=== PATIENT | female | born 1960 | race Caucasian/White ===

== ENCOUNTER 2019-10-31 07:39 | Observation (INO) ==
--- NOTE | 2019-09-27 16:26 | PAT Medication Instructions ---
Medication Instructions Date of Service September 27, 2019 Home Medications apixaban [Eliquis] 5 mg PO BID carisoprodol [Soma] 350 mg PO QID PRN cholecalciferol (vitamin D3) [Vitamin D3] 125 mcg PO DAILY gabapentin 800 mg PO TID ibrutinib [Imbruvica] 420 mg PO QPM magnesium 250 mg PO DAILY pantoprazole 40 mg PO QAM potassium chloride 10 meq PO DAILY propranolol 80 mg PO QAM solifenacin [Vesicare] 5 mg PO QAM ASK your prescriber and surgeon apixaban [Eliquis] 5 mg PO BID (in order for spinal anesthesia, Apixaban/Eliquis needs to be stopped 72 hours/3 days before surgery. Please check if okay with doctor that prescribes this to you) ibrutinib [Imbruvica] 420 mg PO QPM DO NOT take the morning of surgery carisoprodol [Soma] 350 mg PO QID PRN cholecalciferol (vitamin D3) [Vitamin D3] 125 mcg PO DAILY magnesium 250 mg PO DAILY potassium chloride 10 meq PO DAILY solifenacin [Vesicare] 5 mg PO QAM Take morning of surgery With a small sip of water, OTHERWISE NOTHING TO EAT OR DRINK AFTER MIDNIGHT: gabapentin 800 mg PO TID pantoprazole 40 mg PO QAM propranolol 80 mg PO QAM Take evening before surgery carisoprodol [Soma] 350 mg PO QID PRN (if needed) gabapentin 800 mg PO TID Other Notes If you have any questions please call us at [phone] or [phone] or [phone] or [phone]
--- NOTE | 2019-09-28 08:30 | Anesthesiology Consultation ---
Date of Service September 28, 2019 Assessment & Plan (1) Encounter for pre-operative examination: - Awaiting surgeon-ordered PCP (Dr. Quintana; 10/02), cardiology (Dr. Bolaños) and pulmonary (Dr. Vail) clearances. *Per PAT assessment on 09/27: Travel screen negative. No known COVID-19 positive contacts. No current COVID-19 related symptoms. Per patient, surgeon arranging preop COVID testing. Awaiting results. Chart Review Chart Review: Patient seen in Pre Admission Testing Teaching & Discussion Pre-Anesthesia Teaching/Discussion Notes: Instructed NPO after midnight before surgery,except medications with 15 cc of water. Medication instructions provided according to the PAT guidelines. History Surgery Operation Date: 10/31/19 12:20 Proposed Procedures p Right Total Knee Arthroplasty - Jose E Meza DO Height/Weight Height: 5 ft 5 in Weight: 123.5 kg Allergies Allergy/AdvReac Type Severity Reaction Status Date / Time morphine Allergy Unknown hypotension, Verified 09/28/19 08:38 headache BEE STINGS Allergy Unknown swelling, Uncoded 09/28/19 08:38 dyspnea Medications Home Medications Medication Instructions Recorded Confirmed Last Taken apixaban [Eliquis] 5 mg PO BID 09/27/19 09/27/19 Unknown carisoprodol [Soma] 350 mg PO QID PRN 09/27/19 09/27/19 Unknown cholecalciferol (vitamin D3) 125 mcg PO DAILY 09/27/19 09/27/19 Unknown [Vitamin D3] gabapentin 800 mg PO TID 09/27/19 09/27/19 Unknown ibrutinib [Imbruvica] 420 mg PO QPM 09/27/19 09/27/19 Unknown magnesium 250 mg PO DAILY 09/27/19 09/27/19 Unknown pantoprazole 40 mg PO QAM 09/27/19 09/27/19 Unknown potassium chloride 10 meq PO DAILY 09/27/19 09/27/19 Unknown propranolol 80 mg PO QAM 09/27/19 09/27/19 Unknown solifenacin [Vesicare] 5 mg PO QAM 09/27/19 09/27/19 Unknown Past Medical History Medical History Anxiety and depression Back problem Chronic pain CLL (chronic lymphocytic leukemia) 2017- stable, on Imbruvica Colitis ulcerative colitis- stable Diverticulitis 10+ years ago Fibromyalgia GERD (gastroesophageal reflux disease) controlled History of heart attack 2017 History of pulmonary embolism 2017 History of sleep apnea CPAP History of stroke evidence of remote, old "mini" strokes with no residual effects Morbid obesity Osteoarthritis Exercise / Class Metabolic Activity III < 4 Walking/Shop/Light housework Past Family History Family History Sister Family history of diabetes mellitus Mother Family history of esophageal cancer Other Family history of diabetes mellitus in mother Past Surgical History Surgical History History of appendectomy History of biopsy History of colonoscopy History of endoscopy History of hernia repair History of right knee surgery History of surgery on right wrist History of tonsillectomy History of tubal ligation Past Anesthesia History No Hx of Anesthesia Complications Mother, brother, sister: "slow to wake." No similar issues for patient. History of PONV No Hx of PONV and Hx of Motion Sickness Social History Smoking Status: Never smoker Do You Dip or Chew Tobacco: No Hx Alcohol Use: No substance use type: does not use Review of Systems + post nasal drip. Patient denies chest pain, shortness of breath, fever, chills, cough, wheezing, palpitations. Physical Exam Vital Signs VITALS BP 128/79 P 52 TEMP 97.8 SP02 98%RA RESP 16 PHYSICAL Full neck and c-spine range of motion but cervicalgia with extension (chronic issue per patient) Full TMJ range of motion. TMD 3 finger breaths Mallampati Score 3 Dentition: intact Lungs: clear throughout to auscultation Cardiac: regular rate and rhythm, no murmurs noted Spine: normal Carotid arteries: negative bruit Extremities: no edema Testing Laboratory Results 09/28/19 08:15 09/28/19 08:15 PT 11.2 Seconds (9.0-12.0) 09/28/19 08:15 INR 1.1 (0.9-1.1) 09/28/19 08:15 APTT 26.8 Seconds (21.0-31.0) 09/28/19 08:15 Hemoglobin A1c 5.6 % (4.5-5.6) 09/28/19 08:15 Urine Color Yellow 09/28/19 08:15 Urine Appearance Clear (Clear) 09/28/19 08:15 Urine pH 6.5 (4.5-7.5) 09/28/19 08:15 Ur Specific [place] 1.012 (1.000-1.030) 09/28/19 08:15 Urine Protein Negative (Negative) 09/28/19 08:15 Urine Glucose (UA) Negative (Negative) 09/28/19 08:15 Urine Ketones Negative (Negative) 09/28/19 08:15 Urine Nitrite Negative (Negative) 09/28/19 08:15 Ur Leukocyte Esterase Trace (Negative) H 09/28/19 08:15 Urine WBC (Auto) 1-5 /hpf (0-5) 09/28/19 08:15 Urine RBC (Auto) 5-10 /hpf (0-4) H 09/28/19 08:15 U Hyaline Cast (Auto) 0 /lpf (0-5) 09/28/19 08:15 U Epithel Cells (Auto) 20-30 /lpf (0-5) H 09/28/19 08:15 Urine Bacteria (Auto) 1+ (Negative) H 09/28/19 08:15 Blood Type A Negative 09/28/19 08:15 Antibody Screen NEGATIVE 09/28/19 08:15 Surgeon's office made aware of abnormal UA* Electrocardiogram Date: 09/28/19 SB with first degree AVB at 46bpm. Otherwise "normal" ECG. Chest X-Ray Date: 09/28/19 Findings: + NAD Echocardiogram Date: 02/15/19 EF 69%. Grade I DD. Mild MR/TR. High normal pulmonary pressure 30mmhg. Stress Test Date: 05/30/19 Lexiscan stress test negative for ischemia. No ischemic ST/T changes. Attempting to obtain nuclear portion of stress test.
--- NOTE | 2019-09-28 08:55 | XRay Report ---
XR chest Pre-admission PA/Lat CLINICAL HISTORY: PAT preoperative COMPARISON STUDY: No previous studies for comparison. FINDINGS: The bones soft tissues and hemidiaphragms are normal. The cardiomediastinal silhouette is n ormal. The lungs are clear. The pulmonary vasculature is normal. IMPRESSION: Negative chest. ACT 112: Negative or not required by law. The above report was generated using voice recognition software. It may contain grammatical, syntax or spelling errors. Electronically signed by: Italo Warren M.D. 09/28/2019 8:53 AM
--- NOTE | 2019-09-28 09:19 | History & Physical Report ---
Date of Service September 28, 2019 date of surgery: 10-31-19 Assessment & Plan (1) Arthritis of right knee: Risks and benefits of procedure discussed in detail today, patient would like to proceed with a Right total knee replacement at [facility] as scheduled. will obtain medical clearance from Dr Quintana office prior to surgery as well as obtain PATs at [facility]. Will resume her Eliquis post op, f/u 2 weeks post op for routine post-operative care and x-ray, sooner if having any problems. will make arrangements for possible rehab vs SNF post op. At this point in time, has failed conservative measures and would like to proceed with surgical intervention. The risks and benefits have been discussed including, but not limited to, risk of infection, nerve injury, stiffness, loss of motion, failure to improve, etc. Reasonable outcomes and options of treatment were discussed. An explanation of appropriate alternatives to the procedure that may be advantageous were discussed and their risks and benefits, as well as the risks and benefits of not proceeding with treatment. I offered to answer any additional inquiries concerning the treatment involved. All the patient's questions were answered. The patient is agreeable, understanding of the treatment plan and alternatives, and wishes to proceed with the treatment plan. History of Present Illness Chief Complaint: Right knee pain Primary Care Provider: Bassem Quintana MD Ms Bernardo is a 59 year old female who is here for a follow up of right knee pain, presents for pre op eval prior to a right total knee replacement at [facility]. She presents with pain and stiffness on the right side. She states that the symptoms have been chronic non-traumatic. Currently the patient states that the symptoms are moderate-severe and is described as aching, sharp and throbbing. the symptoms are aggravated by ascending stairs, descending stairs, daily activities, driving, first steps while awake, kneeling, movement, repetitive activities, sleeping on the affected side, squatting, walking, standing and weight bearing. In addition to right knee pain the patient is also experiencing decreased mobility, difficulty bending, difficulty going to sleep, instability, limping, nighttime awakening and pain. she has had prior right knee scope as well as previous visco and cortisone injections. Allergies Allergy/AdvReac Type Severity Reaction Status Date / Time morphine Allergy Unknown hypotension, Verified 09/28/19 08:38 headache BEE STINGS Allergy Unknown swelling, Uncoded 09/28/19 08:38 dyspnea Home Medications Home Medications Medication Instructions Recorded Confirmed Type apixaban [Eliquis] 5 mg PO BID 09/27/19 09/27/19 History carisoprodol [Soma] 350 mg PO QID PRN 09/27/19 09/27/19 History cholecalciferol (vitamin D3) 125 mcg PO DAILY 09/27/19 09/27/19 History [Vitamin D3] gabapentin 800 mg PO TID 09/27/19 09/27/19 History ibrutinib [Imbruvica] 420 mg PO QPM 09/27/19 09/27/19 History magnesium 250 mg PO DAILY 09/27/19 09/27/19 History pantoprazole 40 mg PO QAM 09/27/19 09/27/19 History potassium chloride 10 meq PO DAILY 09/27/19 09/27/19 History propranolol 80 mg PO QAM 09/27/19 09/27/19 History solifenacin [Vesicare] 5 mg PO QAM 09/27/19 09/27/19 History Past Med/Surg History Medical History Anxiety and depression Back problem Chronic pain CLL (chronic lymphocytic leukemia) 2017- stable, on Imbruvica Colitis ulcerative colitis- stable Diverticulitis 10+ years ago Fibromyalgia GERD (gastroesophageal reflux disease) controlled History of heart attack 2017 History of pulmonary embolism 2017 History of sleep apnea CPAP History of stroke evidence of remote, old "mini" strokes with no residual effects Morbid obesity Osteoarthritis Surgical History History of appendectomy History of biopsy History of colonoscopy History of endoscopy History of hernia repair History of right knee surgery History of surgery on right wrist History of tonsillectomy History of tubal ligation Family History Sister Family history of diabetes mellitus Mother Family history of esophageal cancer Other Family history of diabetes mellitus in mother Social History Preferred Language: Sinhala Communication Ability: Effective 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 Beliefs That Will Affect Care: None Current Living Situation: Family Current Living Situation Comment: DAUGHTER AND SON Other Information That Helps Us Care for You: No Feels Safe at Home: Yes Smoking Status: Never smoker Do You Dip or Chew Tobacco: No ; Hx Alcohol Use: No Review of Systems Review of Systems: All systems reviewed & are unremarkable except as noted in HPI & below Constitutional: no fever, no chills and no sweats Respiratory: no cough and no dyspnea Cardiovascular: no chest pain, no dyspnea and no orthopnea Gastrointestinal: no abdominal pain, no nausea and no vomiting Musculoskeletal: as per Subjective / HPI Physical Exam Physical Exam: HT: 5ft 5in Wt: 123.5kg BP: 138/82 Constitutional: WD/WN, vitals as above no acute distress Respiratory: normal respiratory effort, lungs clear to auscultation no r espiratory distress, no labored breathing and does not use accessory muscles Cardiovascular: RRR, no murmur, no edema Gastrointestinal (Abdomen): normal bowel sounds, soft, nontender, no hepatosplenomegaly Musculoskeletal: Knee: + knee abnormal to inspection (Right Knee), + effusion (+1 effusion), + surgical incision (well healed portals), + limited ROM of knee (ROM 0/3/110), + knee ROM with crepitation, + joint line tenderness (medial joint line) and + Iglesia's sign positive; no deformity (varus alignment), no skin erythema, no ecchymosis, no valgus laxity, no varus laxity, anterior drawer test negative, Tali's sign negative and pivot shift test negative Results & Data Results & Data ([facility]) Diagnostic Findings Right Knee X-ray from 06/15/19 showing advanced degenerative changes to the right knee, narrowing of the medial compartment and patello-femoral joint with patellar spurring noted, findings showing joint space narrowing of the medial compartment and patello-femoral joint, osteophyte formation and subchondral sclerosis noted. overall varus alignment. no acute bony pathology noted.
[2019-09-28 10:41] LABS: Basophils # (auto) 0.02 K/uL (0-0.2); Basophils % (auto) 0.3 %; Eosinophils # (auto) 0.13 K/uL (0-0.5); Hematocrit (blood only) 38.6 % (37-47); Hemoglobin 11.9 g/dL (12.0-16.0); Immature Granulocytes # (auto) 0.03 K/uL (0.00-0.02); Immature Granulocytes % (auto) 0.5 %; Lymphocytes # (auto) 2.75 K/uL (1.2-3.4); Lymphocytes % (auto) 42.8 %; Mean Corpuscular Hemoglobin 28.1 pg (25-34); Mean Corpuscular Hgb Conc 30.8 g/dL (32-36); Mean Corpuscular Volume 91.3 fL (80-100); Mean Platelet Volume 11.5 fL (7.4-10.4); Monocytes # (auto) 0.68 K/uL (0.11-0.59); Monocytes % (auto) 10.6 %; Neutrophils # (auto) 2.81 K/uL (1.4-6.5); Neutrophils % (auto) 43.8 %; Platelet Count 272 K/uL (130-400); RDW Coefficient of Variation 14.9 % (11.5-14.5); RDW Standard Deviation 50.1 fL (36.4-46.3); Red Blood Count 4.23 M/uL (4.2-5.4); White Blood Count 6.42 K/uL (4.8-10.8)
[2019-09-28 10:49] LABS: Appearance Urine Clear (Clear); Bacteria Urine Automated 1+ (Negative); Bilirubin Urine Negative (Negative); Blood Urine 3+ (Negative); Cast Urine Automated 0 /lpf (0-5); Color Urine Yellow; Epithelial Cell Urine Auto 20-30 /lpf (0-5); Glucose Urine UA Negative (Negative); Ketones Urine Negative (Negative); Leukocyte Esterase Urine Trace (Negative); Nitrite Urine Negative (Negative); Protein Urine Negative (Negative); Specific Gravity Urine 1.012 (1.000-1.030); Urobilinogen Urine Negative (Negative); pH Urine 6.5 (4.5-7.5)
[2019-09-28 10:57] LABS: Estimated Average Glucose 114 mg/dl; Hemoglobin A1C 5.6 % (4.5-5.6)
[2019-09-28 11:00] LABS: Albumin Level 3.3 gm/dl (3.4-5.0); BUN Creatinine Ratio 9.6 (10-20); Creatinine Clr Calc Pharmacy 59.5 ml/min; Est GFR (African American) 50.8; Est GFR (Non-African American) 43.8; INR 1.1 (0.9-1.1); Partial Thromboplastin Time 26.8 Seconds (21.0-31.0); Potassium 4.8 mmol/L (3.5-5.1); Prothrombin Time 11.2 Seconds (9.0-12.0)
--- NOTE | 2019-09-28 12:52 | Electrocardiogram Report ---
Test Reason : Blood Pressure : / mmHG Vent. Rate : 046 BPM Atrial Rate : 046 BPM P-R Int : 238 ms QRS Dur : 092 ms QT Int : 458 ms P-R-T Axes : 018 022 028 degrees QTc Int : 400 ms Sinus bradycardia with 1st degree A-V block Otherwise normal ECG No previous ECGs available Confirmed by Magdaleno Navarrete ([id number]) on 09/28/2019 12:52:50 PM Referred By: Jose E Meza Confirmed By:Huey Navarrete
--- NOTE | 2019-10-02 08:58 | History & Physical Report ---
Date of Service October 02, 2019 date of surgery: 10/31/19 Assessment & Plan (1) Arthritis of right knee: Risks and benefits of procedure discussed in detail today, patient would like to proceed with a Right total knee replacement at [facility] as scheduled. will obtain medical clearance from Dr Quintana office prior to surgery as well as obtain PATs at [facility]. Will resume her Eliquis post op, f/u 2 weeks post op for routine post-operative care and x-ray, sooner if having any problems. will make arrangements for possible rehab vs SNF post op. At this point in time, has failed conservative measures and would like to proceed with surgical intervention. The risks and benefits have been discussed including, but not limited to, risk of infection, nerve injury, stiffness, loss of motion, failure to improve, etc. Reasonable outcomes and options of treatment were discussed. An explanation of appropriate alternatives to the procedure that may be advantageous were discussed and their risks and benefits, as well as the risks and benefits of not proceeding with treatment. I offered to answer any additional inquiries concerning the treatment involved. All the patient's questions were answered. The patient is agreeable, understanding of the treatment plan and alternatives, and wishes to proceed with the treatment plan. History of Present Illness Chief Complaint: right knee pain Primary Care Provider: Bassem Quintana MD Ms Bernardo is a 59 year old female who is here for a follow up of right knee pain, presents for pre op eval prior to a right total knee replacement at [facility]. She presents with pain and stiffness on the right side. She states that the symptoms have been chronic non-traumatic. Currently the patient states that the symptoms are moderate-severe and is described as aching, sharp and throbbing. the symptoms are aggravated by ascending stairs, descending stairs, daily activities, driving, first steps while awake, kneeling, movement, repetitive activities, sleeping on the affected side, squatting, walking, standing and weight bearing. In addition to right knee pain the patient is also experiencing decreased mobility, difficulty bending, difficulty going to sleep, instability, limping, nighttime awakening and pain. she has had prior right knee scope as well as previous visco and cortisone injections. Allergies Allergy/AdvReac Type Severity Reaction Status Date / Time morphine Allergy Unknown hypotension, Verified 09/28/19 08:38 headache BEE STINGS Allergy Unknown swelling, Uncoded 09/28/19 08:38 dyspnea Home Medications Home Medications Medication Instructions Recorded Confirmed Type apixaban [Eliquis] 5 mg PO BID 09/27/19 09/27/19 History carisoprodol [Soma] 350 mg PO QID PRN 09/27/19 09/27/19 History cholecalciferol (vitamin D3) 125 mcg PO DAILY 09/27/19 09/27/19 History [Vitamin D3] gabapentin 800 mg PO TID 09/27/19 09/27/19 History ibrutinib [Imbruvica] 420 mg PO QPM 09/27/19 09/27/19 History magnesium 250 mg PO DAILY 09/27/19 09/27/19 History pantoprazole 40 mg PO QAM 09/27/19 09/27/19 History potassium chloride 10 meq PO DAILY 09/27/19 09/27/19 History propranolol 80 mg PO QAM 09/27/19 09/27/19 History solifenacin [Vesicare] 5 mg PO QAM 09/27/19 09/27/19 History Past Med/Surg History Medical History Anxiety and depression Back problem Chronic pain CLL (chronic lymphocytic leukemia) 2017- stable, on Imbruvica Colitis ulcerative colitis- stable Diverticulitis 10+ years ago Fibromyalgia GERD (gastroesophageal reflux disease) controlled History of heart attack 2017 History of pulmonary embolism 2017 History of sleep apnea CPAP History of stroke evidence of remote, old "mini" strokes with no residual effects Morbid obesity Osteoarthritis Surgical History History of appendectomy History of biopsy History of colonoscopy History of endoscopy History of hernia repair History of right knee surgery History of surgery on right wrist History of tonsillectomy History of tubal ligation Family History Sister Family history of diabetes mellitus Mother Family history of esophageal cancer Other Family history of diabetes mellitus in mother Social History Smoking Status: Never smoker Do You Dip or Chew Tobacco: No; Hx Alcohol Use: No Preferred Language: Chinese Communication Ability: Effective 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 Beliefs That Will Affect Care: None Current Living Situation: Family Current Living Situation Comment: DAUGHTER AND SON Other Information That Helps Us Care for You: No Feels Safe at Home: Yes Review of Systems Constitutional: no fever and no chills Respiratory: no cough and no dyspnea Cardiovascular: no chest pain, no dyspnea and no orthopnea Gastrointestinal: no abdominal pain, no nausea and no vomiting Musculoskeletal: as per Subjective / HPI Physical Exam Physical Exam: HT: 5ft 5in Wt: 123.5kg BP: 138/82 Constitutional: WD/WN, vitals as above no acute distress Respiratory: normal respiratory effort, lungs clear to auscultation no respiratory distress, no labored breathing and does not use accessory muscles Cardiovascular: RRR, no murmur, no edema Gastrointestinal (Abdomen): normal bowel sounds, soft, nontender, no hepatosplenomegaly Musculoskeletal: Knee: + knee abnormal to inspection (Right Knee), + effusion (+1 effusion), + surgical incision (well healed portals), + limited ROM of knee (ROM 0/3/110), + knee ROM with crepitation, + joint line tenderness (medial joint line) and + Iglesia's sign positive; no deformity (varus alignment), no skin erythema, no ecchymosis, no valgus laxity, no varus laxity, anterior drawer test negative, Tali's sign negative and pivot shift test negative Results & Data Results & Data ([facility]) Laboratory Results Laboratory Results WBC 6.42 K/uL (4.8-10.8) 09/28/19 08:15 RBC 4.23 M/uL (4.2-5.4) 09/28/19 08:15 Hgb 11.9 g/dL (12.0-16.0) L 09/28/19 08:15 Hct 38.6 % (37-47) 09/28/19 08:15 MCV 91.3 fL (80-100) 09/28/19 08:15 MCH 28.1 pg (25-34) 09/28/19 08:15 MCHC 30.8 g/dL (32-36) L 09/28/19 08:15 RDW Std Deviation 50.1 fL (36.4-46.3) H 09/28/19 08:15 RDW Coeff of Thai 14.9 % (11.5-14.5) H 09/28/19 08:15 Plt Count 272 K/uL (130-400) 09/28/19 08:15 MPV 11.5 fL (7.4-10.4) H 09/28/19 08:15 Immature Gran % (Auto) 0.5 % 09/28/19 08:15 Neut % (Auto) 43.8 % 09/28/19 08:15 Lymph % (Auto) 42.8 % 09/28/19 08:15 [place] % (Auto) 10.6 % 09/28/19 08:15 Eos % (Auto) 2.0 % 09/28/19 08:15 Baso % (Auto) 0.3 % 09/28/19 08:15 Neut # (Auto) 2.81 K/uL (1.4-6.5) 09/28/19 08:15 Lymph # (Auto) 2.75 K/uL (1.2-3.4) 09/28/19 08:15 [place] # (Auto) 0.68 K/uL (0.11-0.59) H 09/28/19 08:15 Eos # (Auto) 0.13 K/uL (0-0.5) 09/28/19 08:15 Baso # (Auto) 0.02 K/uL (0-0.2) 09/28/19 08:15 Immature Gran # (Auto) 0.03 K/uL (0.00-0.02) H 09/28/19 08:15 PT 11.2 Seconds (9.0-12.0) 09/28/19 08:15 INR 1.1 (0.9-1.1) 09/28/19 08:15 APTT 26.8 Seconds (21.0-31.0) 09/28/19 08:15 PTT Ratio 1.0 09/28/19 08:15 Sodium 143 mmol/L (136-145) 09/28/19 08:15 Potassium 4.8 mmol/L (3.5-5.1) 09/28/19 08:15 Chloride 109 mmol/L (98-107) H 09/28/19 08:15 Carbon Dioxide 31 mmol/L (21-32) 09/28/19 08:15 Anion Gap 3.0 (3-11) 09/28/19 08:15 BUN 13 mg/dl (7-18) 09/28/19 08:15 Creatinine 1.31 mg/dl (0.6-1.2) H 09/28/19 08:15 Est Cr Clr Drug Dosing 59.5 ml/min 09/28/19 08:15 Est GFR ( Amer) 50.8 09/28/19 08:15 Est GFR (Non-Af Amer) 43.8 09/28/19 08:15 BUN/Creatinine Ratio 9.6 (10-20) L 09/28/19 08:15 Glucose 118 mg/dl (70-99) H 09/28/19 08:15 Estimat Average Glucose 114 mg/dl 09/28/19 08:15 Hemoglobin A1c 5.6 % (4.5-5.6) 09/28/19 08:15 Calcium 9.0 mg/dl (8.5-10.1) 09/28/19 08:15 Albumin 3.3 gm/dl (3.4-5.0) L 09/28/19 08:15 Urine Color Yellow 09/28/19 08:15 Urine Appearance Clear (Clear) 09/28/19 08:15 Urine pH 6.5 (4.5-7.5) 09/28/19 08:15 Ur Specific [place] 1.012 (1.000-1.030) 09/28/19 08:15 Urine Protein Negative (Negative) 09/28/19 08:15 Urine Glucose (UA) Negative (Negative) 09/28/19 08:15 Urine Ketones Negative (Negative) 09/28/19 08:15 Urine Blood 3+ (Negative) H 09/28/19 08:15 Urine Nitrite Negative (Negative) 09/28/19 08:15 Urine Bilirubin Negative (Negative) 09/28/19 08:15 Urine Urobilinogen Negative (Negative) 09/28/19 08:15 Ur Leukocyte Esterase Trace (Negative) H 09/28/19 08:15 Urine WBC (Auto) 1-5 /hpf (0-5) 09/28/19 08:15 Urine RBC (Auto) 5-10 /hpf (0-4) H 09/28/19 08:15 U Hyaline Cast (Auto) 0 /lpf (0-5) 09/28/19 08:15 U Epithel Cells (Auto) 20-30 /lpf (0-5) H 09/28/19 08:15 Urine Bacteria (Auto) 1+ (Negative) H 09/28/19 08:15 Blood Type A Negative 09/28/19 08:15 Antibody Screen NEGATIVE 09/28/19 08:15 Diagnostic Findings Right Knee X-ray from 06/15/19 showing advanced degenerative changes to the right knee, narrowing of the medial compartment and patello-femoral joint with patellar spurring noted, findings showing joint space narrowing of the medial compartment and patello-femoral joint, osteophyte formation and subchondral sclerosis noted. overall varus alignment. no acute bony pathology noted.
[~2019-10-31 07:39] MED LIST: ACETAMINOPHEN 500 MG TAB PO SCH; CEFAZOLIN 3000MG 72.5 ML IV SCH; CeleBREX 200 MG CAP PO SCH; FAMOTIDINE 20 MG TAB PO SCH; GABAPENTIN 600 MG DOSE PO SCH; LR 500ML BOLUS, THEN 15ML/HR IV SCH; METOCLOPRAMIDE HCL 10 MG TABLET PO SCH; ROPIVACAINE 0.5% HCL/PF 150 MG, BUPIVACAINE 0.5% MPF 30 ML, EPINEPHrine 30MG/30ML (OR U... INFIL SCH; TRANEXAMIC ACID 1,000 MG **IV Intra-op IV SCH; TRANEXAMIC ACID 1,000 MG **IV Pre-op IV SCH; dexAMETHasone 4 MG TAB PO SCH
[2019-10-31] MEDS ORDERED: BUPIVACAINE 0.5 % 5 MG/1 ML PF 10ML VIAL ONE (07:41)
[2019-10-31] MEDS ORDERED: ROPIVACAINE 0.5% 5 MG/ML 30 ML VIAL ONE (07:42)
[2019-10-31] MEDS ORDERED: LIDOCAINE HCL 2% 2 ML VIAL/AMP(20MG/ML) INFIL ONE (07:44)
[2019-10-31] MEDS ORDERED: ONDANSETRON INJ 2 MG/ML 2 ML VIAL ONE (07:44)
[2019-10-31] MEDS ORDERED: PROPOFOL IV EMULSION 10 MG/ML 20 ML VIAL IV ONE ×2 (07:44→08:10)
[2019-10-31] MEDS ORDERED: MIDAZOLAM HCL 1 MG/ML 2ML VIAL ONE (07:44)
[2019-10-31] MEDS ORDERED: fentaNYL citrate 100 MCG/2 ML VIAL ONE (07:44)
--- NOTE | 2019-10-31 08:35 | History & Physical Bridge Note ---
Date of Service October 31, 2019 History & Physical Bridge Note I have examined the patient, reviewed the History & Physical and in the interval since the performance of the History & Physical I have noted the following changes of clinical significance: no changes noted
[2019-10-31] MEDS ORDERED: BACITRACIN INJ 50,000 UNIT VIAL ONE (09:09)
[2019-10-31] MEDS ORDERED: ORTHO JOINT ANESTHETIC ONE (09:09)
[2019-10-31] MEDS ORDERED: ATROPINE SULFATE 0.1 MG/ML 10ML SYR IV PRN (10:00)
[2019-10-31] MEDS ORDERED: ONDANSETRON INJ 2 MG/ML 2 ML VIAL IV PRN ×2 (10:00→14:06)
[2019-10-31] MEDS ORDERED: HYDROmorphone INJ 1 MG/ML SYRINGE IV PRN (10:00)
[2019-10-31] MEDS ORDERED: ePHEDrine sulfate 50 MG/ML AMP IV PRN (10:00)
--- NOTE | 2019-10-31 11:09 | Operative Report ---
Post Operative Report Pre & Post Diagnosis Operation Date: 10/31/19 09:40 Pre-Op Diagnosis: Osteoarthritis, Right Knee Post-Op Diagnosis: Osteoarthritis, Right Knee I identified the patient and participated in the time-out.: Yes Procedure Operation Date: 10/31/19 09:40 Actual Procedures p Right Total Knee Arthroplasty(Right utilizing [employer] journey 2 patient matched total knee arthroplasty size 6 femur 5 tibia 13 polyethylene 32 oval patella) - Jose E Meza DO Surgeon Jose E Meza DO Line Construction Supervisor BRIELLE Flores Estimated Blood Loss 5 Findings Consistent with Post-Op Diagnosis Patient presents with severe end-stage tricompartmental degenerative joint disease varus alignment subchondral sclerosis marginal osteophytes subchondral cystic changes moderate to large effusion no response to conservative management Specimens Bone and cartilage Drains Medium bore Hemovac Anesthesia Type MAC Spinal Regional Complications none Disposition Accompanied Patient To Recovery: No Disposition: Recovery Room Indications Patient presents with severe end-stage DJD of the right knee no response to conservative management patient failed attempted conservative management clinic physical therapy anti-inflammatories relative rest activity modification corticosteroid injections Visco supplementation patient presents the above i ntraoperative findings noted. Description of Procedure After proper prepping and draping of the Right lower extremity anterior midline incision was made over the region of the extensor extensor mechanism after meticulous hemostasis was obtained and maintained in subcutaneous tissues a medial parapatellar incision was made The patella was subluxed lateralward the medial lateral gutter were cleaned from any hypertrophic synovitis and scar tissue of the distal femoral block was placed and the distal femoral osteotomy cut was made subsequently the chamfers anterior and posterior osteotomy cuts were made utilizing the 4-in-1 block the tibia was subsequently subluxed anteriorward medial and ateral meniscal remnants were excised in their entirety remnants of the anterior and posterior cruciate ligaments were excised in their entirety excellent exposure of the proximal tibia was obtained the tibial osteotomy guide was placed on the proximal tibial osteotomy cut was made once again the knee was irrigated with copious amounts of sterile saline solution the patella was subsequently everted lateralward thickened scar tissue around the patella was removed the patella was subsequently cut utilizing a freehand technique and was drilled prepared for final preparation and placement of patella socially flexion-extension gaps were checked and the equal and symmetric trials were placed to the appropriate femoral and tibial trials with poly-spacer being placed for equal flexion and extension gaps and full range of motion including extension to 0 and flexion to 140 the trial components after having been taken to recovery range of motion was subsequently removed meticulous hemostasis was obtained and maintained subsequently a knee block injection of joint cocktail including ropivacaine 0.5% 150 mg. Bupivacaine 0.5% epinephrine 1-200,030 mL's toradol 30 mg dexamethasone 4 mg ketamine 10 mg clonidine 100 micrograms normal saline solution 30 mg was infiltrated into the soft tissues of the posterior knee medial lateral gutters and periosteal synovium special attention was paid to protect neurovascular structures at all times subsequently trial components having been removed the knee was irrigated with sterile saline solution. debris was removed the proximal tibia was subsequently prepared and was made ready for the placement of the tibial component tibial component was also cemented and tamped into position the femoral component was subsequently placed and cemented in the position the patellar component was subsequently cemented in position because hemostasis once again obtained and maintained wound having been thoroughly irrigated with debridement and debridement lavage was performed as well as a medial parapatellar incision closed with #1 Vicryl in interrupted fashion subcutaneous was closed with #2 Vicryl skin was closed with skin clips. PA-C was necessary for prepping and drapping as well as wound closure of deep fascia Sub cutaneous tissue and skin and was necessary for the case. A sterile compressive dressing was placed patient was taken to recovery in stable condition of report dictated by Derrick I attest to the content of the Intraoperative Record and any orders documented therein. Any exceptions are noted below. I attest to the content of the Intraoperative Record and any orders documented therein. Any exceptions are noted below.
--- NOTE | 2019-10-31 12:59 | XRay Report ---
XR knee RT 1 or 2V routine CLINICAL HISTORY: Postoperative evaluation. COMPARISON: None FINDINGS: Alignment of the total right knee arthroplasty is anatomic. There is no periprosthetic fra cture or unexpected radiopaque foreign body. There are drains and skin melani. IMPRESSION: Expected findings following total right knee arthroplasty. ACT 112: Negative or not required by law. Electronically signed by: Ang Avelar M.D. 10/31/2019 12:57 PM
--- NOTE | 2019-10-31 13:51 | Anesthesiology Progress Note ---
Date of Service October 31, 2019 Anesthesia Post Procedure Vital Signs Vital Signs: Temp Pulse Pulse Resp BP Pulse Ox 10/31/19 13:40 45 L 16 132/73 98 10/31/19 13:30 54 L 22 143/81 H 100 10/31/19 13:20 48 L 12 131/74 99 10/31/19 13:10 47 L 12 147/70 H 100 10/31/19 13:00 42 L 10 L 133/76 100 10/31/19 12:50 42 L 12 146/58 H 100 10/31/19 12:40 48 L 13 135/71 100 10/31/19 12:30 53 L 19 125/97 100 10/31/19 12:20 49 L 16 122/62 100 10/31/19 12:10 54 L 14 129/74 99 10/31/19 12:00 48 L 13 118/75 100 10/31/19 11:52 36.3 C L 54 L 13 120/74 99 10/31/19 09:49 45 L 18 178/76 H 99 10/31/19 08:53 36.5 C 49 L 18 145/82 H 100 Pain Intensity Right Knee: Pain Intensity: 6 Lower Back: Pain Intensity: 6 Posterior Neck: Pain Intensity: 6 Transfer of Care Handoff Completed per policy Notes Mental Status: alert / awake / arousable Patient Amnestic to Procedure: Yes Nausea / Vomiting: adequately controlled Pain: adequately controlled Airway Patency, RR, SpO2: stable & adequate BP & HR: stable & adequate Hydration State: stable & adequate Anesthetic Complications: no major complications apparent
[2019-10-31] MEDS ORDERED: TRAMADOL HCL 50 MG TABLET PO PRN (14:06)
[2019-10-31] MEDS ORDERED: CARISOPRODOL 350 MG TABLET PO PRN (14:06)
[2019-10-31] MEDS ORDERED: MAGNESIUM HYDROXIDE SUSP 30 ML UDC PO PRN (14:06)
[2019-10-31] MEDS ORDERED: NALOXONE HCL 0.4 MG/1 ML VIAL/CARP IV PRN (14:06)
[2019-10-31] MEDS ORDERED: METOCLOPRAMIDE HCL INJ 5 MG/ML 2 ML VIAL IV PRN (14:06)
[2019-10-31] MEDS ORDERED: bisacodyL 10 MG SUPP PR PRN (14:06)
[2019-10-31] MEDS: SODIUM CHLORIDE 0.9% 1000ML 1,000 ML IV SCH (14:36)
[2019-10-31] MEDS: VESICARE - ORDER AWAITING ACTION SCH (16:49)
[2019-10-31] MEDS: GABAPENTIN 800 MG TAB PO SCH ×2 (16:50→21:02)
[2019-10-31] MEDS: CEFAZOLIN 2000MG 2,000 MG/15 ML SYR IV SCH (18:01)
[2019-10-31] MEDS: ACETAMINOPHEN 500 MG TAB PO SCH (18:01)
[2019-10-31] MEDS: SENNA 8.6 MG TAB PO SCH (21:01)
[2019-10-31] MEDS: IBRUTINIB PO SCH (21:01)
[2019-10-31] MEDS: DOCUSATE SODIUM 100 MG CAP PO SCH (21:02)
[2019-10-31] MEDS: PROPRANOLOL HCL LA 80 MG CAPCR PO SCH (21:02)
[2019-11-01] MEDS: VESICARE - ORDER AWAITING ACTION SCH ×2 (00:29→09:02)
[2019-11-01] MEDS: SODIUM CHLORIDE 0.9% 1000ML 1,000 ML IV SCH (00:48)
[2019-11-01] MEDS: CEFAZOLIN 2000MG 2,000 MG/15 ML SYR IV SCH (02:11)
[2019-11-01] MEDS: ACETAMINOPHEN 500 MG TAB PO SCH ×3 (06:06→22:19)
[2019-11-01 06:54] LABS: Hematocrit (blood only) 34.6 % (37-47); Hemoglobin 10.7 g/dL (12.0-16.0); Mean Corpuscular Hemoglobin 28.7 pg (25-34); Mean Corpuscular Hgb Conc 30.9 g/dL (32-36); Mean Corpuscular Volume 92.8 fL (80-100); Mean Platelet Volume 10.8 fL (7.4-10.4); Platelet Count 264 K/uL (130-400); RDW Coefficient of Variation 14.5 % (11.5-14.5); RDW Standard Deviation 49.7 fL (36.4-46.3); Red Blood Count 3.73 M/uL (4.2-5.4); White Blood Count 14.36 K/uL (4.8-10.8)
[2019-11-01 07:27] LABS: BUN Creatinine Ratio 16.6 (10-20); Calcium 9.1 mg/dl (8.5-10.1); Creatinine Clr Calc Pharmacy 60.7 ml/min; Est GFR (African American) 52.2; Est GFR (Non-African American) 45.1; Potassium 4.4 mmol/L (3.5-5.1)
--- NOTE | 2019-11-01 07:42 | Orthopedic Progress Note ---
Date of Service November 01, 2019 Assessment & Plan (1) Arthritis of right knee: Postop day 1 status post right total knee arthroplasty. PT/OT protocols. Weightbearing as tolerated. DVT prophylaxis-Eliquis p.o. twice daily, SCDs, KEMAR mcintosh. Pain management-as written. DC planning-awaiting possible authorization for [place] swing bed unit. Patient states that if this does not get approved that she will be staying at her sister's house and plan for home health. Admission and Anticipated Discharge Date Admission Date: October 31, 2019 Subjective Postop day 1 patient currently sitting up in bed. She is awake and alert. No complaints this morning. Pain is controlled. Denies shortness of breath, chest pain, lightheadedness. Patient discussed discharge plans and she is hoping to get into [facility] swing bed unit for a few days of therapy there. Physical Exam Physical Exam: Dressings are clean, dry, and intact. Calves are soft nontender. Neurovascular intact. Toes are mobile. She has good dorsiflexion and plantarflexion of the right foot. Hemovac drainage was 125 mL's from the previous shift. Results & Data ([facility]) Vital Signs (Past 12 Hours) Vital Signs Temp Pulse Resp BP BP Pulse Ox 11/01/19 07:27 36.5 C 51 L 18 117/73 96 11/01/19 03:48 36.5 C 57 L 14 110/56 L 94 10/31/19 23:22 36.4 C L 56 L 14 109/64 96 10/31/19 21:09 36.5 C 65 16 120/73 96 Laboratory Results Laboratory Results WBC 14.36 K/uL (4.8-10.8) H 11/01/19 06:44 RBC 3.73 M/uL (4.2-5.4) L 11/01/19 06:44 Hgb 10.7 g/dL (12.0-16.0) L 11/01/19 06:44 Hct 34.6 % (37-47) L 11/01/19 06:44 MCV 92.8 fL (80-100) 11/01/19 06:44 MCH 28.7 pg (25-34) 11/01/19 06:44 MCHC 30.9 g/dL (32-36) L 11/01/19 06:44 RDW Std Deviation 49.7 fL (36.4-46.3) H 11/01/19 06:44 RDW Coeff of Thai 14.5 % (11.5-14.5) 11/01/19 06:44 Plt Count 264 K/uL (130-400) 11/01/19 06:44 MPV 10.8 fL (7.4-10.4) H 11/01/19 06:44 Immature Gran % (Auto) 0.5 % 09/28/19 08:15 Neut % (Auto) 43.8 % 09/28/19 08:15 Lymph % (Auto) 42.8 % 09/28/19 08:15 [place] % (Auto) 10.6 % 09/28/19 08:15 Eos % (Auto) 2.0 % 09/28/19 08:15 Baso % (Auto) 0.3 % 09/28/19 08:15 Neut # (Auto) 2.81 K/uL (1.4-6.5) 09/28/19 08:15 Lymph # (Auto) 2.75 K/uL (1.2-3.4) 09/28/19 08:15 [place] # (Auto) 0.68 K/uL (0.11-0.59) H 09/28/19 08:15 Eos # (Auto) 0.13 K/uL (0-0.5) 09/28/19 08:15 Baso # (Auto) 0.02 K/uL (0-0.2) 09/28/19 08:15 Immature Gran # (Auto) 0.03 K/uL (0.00-0.02) H 09/28/19 08:15 PT 11.2 Seconds (9.0-12.0) 09/28/19 08:15 INR 1.1 (0.9-1.1) 09/28/19 08:15 APTT 26.8 Seconds (21.0-31.0) 09/28/19 08:15 PTT Ratio 1.0 09/28/19 08:15 Sodium 142 mmol/L (136-145) 11/01/19 06:44 Potassium 4.4 mmol/L (3.5-5.1) 11/01/19 06:44 Chloride 112 mmol/L (98-107) H 11/01/19 06:44 Carbon Dioxide 25 mmol/L (21-32) 11/01/19 06:44 Anion Gap 5.0 (3-11) 11/01/19 06:44 BUN 21 mg/dl (7-18) H 11/01/19 06:44 Creatinine 1.28 mg/dl (0.6-1.2) H 11/01/19 06:44 Est Cr Clr Drug Dosing 60.7 ml/min 11/01/19 06:44 Est GFR ( Amer) 52.2 11/01/19 06:44 Est GFR (Non-Af Amer) 45.1 11/01/19 06:44 BUN/Creatinine Ratio 16.6 (10-20) 11/01/19 06:44 Glucose 145 mg/dl (70-99) H 11/01/19 06:44 Estimat Average Glucose 114 mg/dl 09/28/19 08:15 Hemoglobin A1c 5.6 % (4.5-5.6) 09/28/19 08:15 Calcium 9.1 mg/dl (8.5-10.1) 11/01/19 06:44 Albumin 3.3 gm/dl (3.4-5.0) L 09/28/19 08:15 Urine Color Yellow 09/28/19 08:15 Urine Appearance Clear (Clear) 09/28/19 08:15 Urine pH 6.5 (4.5-7.5) 09/28/19 08:15 Ur Specific [place] 1.012 (1.000-1.030) 09/28/19 08:15 Urine Protein Negative (Negative) 09/28/19 08:15 Urine Glucose (UA) Negative (Negative) 09/28/19 08:15 Urine Ketones Negative (Negative) 09/28/19 08:15 Urine Blood 3+ (Negative) H 09/28/19 08:15 Urine Nitrite Negative (Negative) 09/28/19 08:15 Urine Bilirubin Negative (Negative) 09/28/19 08:15 Urine Urobilinogen Negative (Negative) 09/28/19 08:15 Ur Leukocyte Esterase Trace (Negative) H 09/28/19 08:15 Urine WBC (Auto) 1-5 /hpf (0-5) 09/28/19 08:15 Urine RBC (Auto) 5-10 /hpf (0-4) H 09/28/19 08:15 U Hyaline Cast (Auto) 0 /lpf (0-5) 09/28/19 08:15 U Epithel Cells (Auto) 20-30 /lpf (0-5) H 09/28/19 08:15 Urine Bacteria (Auto) 1+ (Negative) H 09/28/19 08:15 Blood Type A Negative 09/28/19 08:15 Antibody Screen NEGATIVE 09/28/19 08:15
[2019-11-01] MEDS ORDERED: PROPRANOLOL HCL LA 80 MG CAPCR PO SCH (09:00)
[2019-11-01] MEDS: MULTIVITAMIN TAB PO SCH (09:17)
[2019-11-01] MEDS: DOCUSATE SODIUM 100 MG CAP PO SCH ×2 (09:17→20:43)
[2019-11-01] MEDS: MAGNESIUM OXIDE 400 MG TAB PO SCH (09:17)
[2019-11-01] MEDS: APIXABAN 5 MG TABLET PO SCH ×2 (09:18→20:43)
[2019-11-01] MEDS: POTASSIUM CHLORIDE 10 MEQ TABCR PO SCH (09:18)
[2019-11-01] MEDS: SOLIFENACIN SUCCINATE PO SCH (09:18)
[2019-11-01] MEDS: GABAPENTIN 800 MG TAB PO SCH ×3 (09:18→20:43)
[2019-11-01] MEDS: CHOLECALCIFEROL 1,000 UNITS 25 MCG TAB PO SCH (09:19)
[2019-11-01] MEDS: HYDROCODONE/ACETAMOPHEN 5/325MG TAB PO PRN ×3 (10:55→20:40)
[2019-11-01] MEDS: HYDROmorphone INJ 1 MG/ML SYRINGE IV PRN (18:02)
[2019-11-01] MEDS: PROPRANOLOL HCL LA 80 MG CAPCR PO SCH (20:43)
[2019-11-01] MEDS: SENNA 8.6 MG TAB PO SCH (20:43)
[2019-11-01] MEDS: IBRUTINIB PO SCH (20:45)
[2019-11-02] MEDS: HYDROmorphone INJ 1 MG/ML SYRINGE IV PRN ×3 (00:51→17:26)
[2019-11-02] MEDS: ACETAMINOPHEN 500 MG TAB PO SCH ×3 (05:05→22:11)
--- NOTE | 2019-11-02 06:56 | Orthopedic Progress Note ---
Date of Service November 02, 2019 Assessment & Plan (1) Arthritis of right knee: Postop day 2 status post right total knee arthroplasty. PT/OT protocols. Weightbearing as tolerated. DVT prophylaxis-Eliquis p.o. twice daily, SCDs, KEMAR mcintosh. Pain management-as written. ELENITA planning-awaiting possible authorization for [facility] bed unit. Patient states that if this does not get approved that she will be staying at her sister's house and plan for home health. Admission and Anticipated Discharge Date Admission Date: October 31, 2019 Subjective POD #2 s/p Right TKA Review of Systems Review of Systems: All systems reviewed & are unremarkable except as noted in HPI & below Constitutional: no fever and no chills Respiratory: no cough and no dyspnea Cardiovascular: no chest pain, no dyspnea and no orthopnea Gastrointestinal: no abdominal pain, no nausea and no vomiting Physical Exam Physical Exam: Vital Signs Temp 36.6 C 11/01/19 23:45 Pulse 56 L 11/01/19 23:45 Resp 16 11/01/19 23:45 BP 110/60 11/01/19 23:45 Pulse Ox 98 11/01/19 23:45 Intake & Output 11/01/19 11/01/19 11/02/19 06:59 18:59 06:59 Intake Total 1191.667 / 2964.16 7 610 / 1010 400 / 1010 Output Total 2325 / 2365 425 / 550 125 / 550 Balance -1133.333 / 599.16 7 185 / 460 275 / 460 Intake: IV 991.667 / 1864.167 Nss 1000ML 1,0 00 ml @ 100 mls/ 991.667 / 991.667 hr IV .Q10H SC H Rx#:[id number] Oral 200 / 200 610 / 1010 400 / 1010 Output: Urine 1950 / 1950 275 / 275 Drain Output 375 / 410 150 / 275 125 / 275 Right Knee Hem ovac 375 / 410 150 / 275 125 / 275 Other: # Unmeasured Voi ds 2 Constitutional: WD/WN, vitals as above no acute distress Musculoskeletal: Right leg: NVDI, calf SNT, negative [place] sign. DP palpable, able to wiggle toes/ankle movement without difficulty. dressing clean dry and intact. expected post-operative bruising noted. Results & Data ([facility]) Vital Signs (Past 12 Hours) Vital Signs Temp Pulse Resp BP Pulse Ox 11/01/19 23:45 36.6 C 56 L 16 110/60 98
[2019-11-02] MEDS: HYDROCODONE/ACETAMOPHEN 5/325MG TAB PO PRN ×2 (07:17→11:16)
[2019-11-02] MEDS: MAGNESIUM OXIDE 400 MG TAB PO SCH (09:05)
[2019-11-02] MEDS: POTASSIUM CHLORIDE 10 MEQ TABCR PO SCH (09:05)
[2019-11-02] MEDS: APIXABAN 5 MG TABLET PO SCH ×2 (09:05→22:12)
[2019-11-02] MEDS: DOCUSATE SODIUM 100 MG CAP PO SCH ×2 (09:05→22:11)
[2019-11-02] MEDS: GABAPENTIN 800 MG TAB PO SCH ×3 (09:05→22:11)
[2019-11-02] MEDS: MULTIVITAMIN TAB PO SCH (09:05)
[2019-11-02] MEDS: CHOLECALCIFEROL 1,000 UNITS 25 MCG TAB PO SCH (09:06)
[2019-11-02] MEDS: SOLIFENACIN SUCCINATE PO SCH (09:06)
[2019-11-02] MEDS: PANTOprazole 40 MG TAB PO SCH (10:43)
[2019-11-02] MEDS ORDERED: KETOROLAC 30 MG/ML VIAL IV ONE (12:03)
[2019-11-02] MEDS ORDERED: SODIUM CHLORIDE 0.9% 1000ML 500 ML IV ONE (17:34)
[2019-11-02] MEDS ORDERED: HYDROmorphone INJ 0.5 MG/0.5 ML SYR IV PRN (17:44)
[2019-11-02] MEDS: SENNA 8.6 MG TAB PO SCH (22:11)
[2019-11-02] MEDS: PROPRANOLOL HCL LA 80 MG CAPCR PO SCH (22:11)
[2019-11-02] MEDS: IBRUTINIB PO SCH (22:12)
[2019-11-02] MEDS: HYDROmorphone HCL 2 MG TAB PO PRN (23:33)
[2019-11-03] MEDS: HYDROmorphone HCL 2 MG TAB PO PRN ×6 (04:13→22:46)
[2019-11-03 05:28] LABS: Hematocrit (blood only) 31.9 % (37-47); Hemoglobin 9.7 g/dL (12.0-16.0); Mean Corpuscular Hgb Conc 30.4 g/dL (32-36); Mean Corpuscular Volume 95.5 fL (80-100); Mean Platelet Volume 10.5 fL (7.4-10.4); Platelet Count 250 K/uL (130-400); RDW Coefficient of Variation 15.2 % (11.5-14.5); RDW Standard Deviation 53.2 fL (36.4-46.3); Red Blood Count 3.34 M/uL (4.2-5.4); White Blood Count 10.71 K/uL (4.8-10.8)
[2019-11-03 05:44] LABS: BUN Creatinine Ratio 18.9 (10-20); Calcium 8.8 mg/dl (8.5-10.1); Creatinine Clr Calc Pharmacy 57.5 ml/min; Est GFR (Non-African American) 42.3; Potassium 4.6 mmol/L (3.5-5.1)
[2019-11-03] MEDS: ACETAMINOPHEN 500 MG TAB PO SCH ×3 (05:44→21:03)
[2019-11-03] MEDS: DOCUSATE SODIUM 100 MG CAP PO SCH ×2 (07:49→17:43)
[2019-11-03] MEDS: GABAPENTIN 800 MG TAB PO SCH ×3 (07:49→21:04)
[2019-11-03] MEDS: MAGNESIUM OXIDE 400 MG TAB PO SCH (07:50)
[2019-11-03] MEDS: MULTIVITAMIN TAB PO SCH (07:50)
[2019-11-03] MEDS: CHOLECALCIFEROL 1,000 UNITS 25 MCG TAB PO SCH (07:50)
[2019-11-03] MEDS: PANTOprazole 40 MG TAB PO SCH (07:50)
[2019-11-03] MEDS: POTASSIUM CHLORIDE 10 MEQ TABCR PO SCH (07:50)
[2019-11-03] MEDS: SOLIFENACIN SUCCINATE PO SCH (07:51)
[2019-11-03] MEDS: APIXABAN 5 MG TABLET PO SCH ×2 (07:51→21:04)
--- NOTE | 2019-11-03 09:21 | Orthopedic Progress Note ---
Date of Service November 03, 2019 Assessment & Plan (1) Arthritis of right knee: Postop day 3 status post right total knee arthroplasty. PT/OT protocols. Weightbearing as tolerated. DVT prophylaxis-Eliquis p.o. twice daily, SCDs, KEMAR mcintosh. Pain management-patient doing better today with current pain management. We will get up with PT today. If she is progressing well and her pain management is reasonable, plan for discharge to home. DC planning-patient planning for home health services. Admission and Anticipated Discharge Date Admission Date: October 31, 2019 Subjective Postop day 3 Patient was having pain management issues yesterday after her blocks wore off. Initially given 1 dose of Toradol. She was still painful when I saw her yesterday afternoon and we switched her over to p.o. Dilaudid. This morning she is sitting up in bed eating breakfast. States that she is feeling much better with her pain control. She denies any shortness of breath, chest pain, lightheadedness. Physical Exam Physical Exam: Gloria dressing is clean, dry, and intact. Calves are soft nontender. Neurovascular intact. Toes are mobile. Results & Data ([facility]) Vital Signs (Past 12 Hours) Vital Signs Temp Pulse Pulse Resp BP Pulse Ox 11/03/19 08:00 36.7 C 61 17 107/70 93 11/02/19 23:43 36.6 C 51 L 16 142/83 H 94 Laboratory Results Laboratory Results WBC 10.71 K/uL (4.8-10.8) 11/03/19 05:17 RBC 3.34 M/uL (4.2-5.4) L 11/03/19 05:17 Hgb 9.7 g/dL (12.0-16.0) L 11/03/19 05:17 Hct 31.9 % (37-47) L 11/03/19 05:17 MCV 95.5 fL (80-100) 11/03/19 05:17 MCH 29.0 pg (25-34) 11/03/19 05:17 MCHC 30.4 g/dL (32-36) L 11/03/19 05:17 RDW Std Deviation 53.2 fL (36.4-46.3) H 11/03/19 05:17 RDW Coeff of Thai 15.2 % (11.5-14.5) H 11/03/19 05:17 Plt Count 250 K/uL (130-400) 11/03/19 05:17 MPV 10.5 fL (7.4-10.4) H 11/03/19 05:17 Immature Gran % (Auto) 0.5 % 09/28/19 08:15 Neut % (Auto) 43.8 % 09/28/19 08:15 Lymph % (Auto) 42.8 % 09/28/19 08:15 [place] % (Auto) 10.6 % 09/28/19 08:15 Eos % (Auto) 2.0 % 09/28/19 08:15 Baso % (Auto) 0.3 % 09/28/19 08:15 Neut # (Auto) 2.81 K/uL (1.4-6.5) 09/28/19 08:15 Lymph # (Auto) 2.75 K/uL (1.2-3.4) 09/28/19 08:15 [place] # (Auto) 0.68 K/uL (0.11-0.59) H 09/28/19 08:15 Eos # (Auto) 0.13 K/uL (0-0.5) 09/28/19 08:15 Baso # (Auto) 0.02 K/uL (0-0.2) 09/28/19 08:15 Immature Gran # (Auto) 0.03 K/uL (0.00-0.02) H 09/28/19 08:15 PT 11.2 Seconds (9.0-12.0) 09/28/19 08:15 INR 1.1 (0.9-1.1) 09/28/19 08:15 APTT 26.8 Seconds (21.0-31.0) 09/28/19 08:15 PTT Ratio 1.0 09/28/19 08:15 Sodium 140 mmol/L (136-145) 11/03/19 05:17 Potassium 4.6 mmol/L (3.5-5.1) 11/03/19 05:17 Chloride 109 mmol/L (98-107) H 11/03/19 05:17 Carbon Dioxide 30 mmol/L (21-32) 11/03/19 05:17 Anion Gap 1.0 (3-11) L 11/03/19 05:17 BUN 26 mg/dl (7-18) H 11/03/19 05:17 Creatinine 1.35 mg/dl (0.6-1.2) H 11/03/19 05:17 Est Cr Clr Drug Dosing 57.5 ml/min 11/03/19 05:17 Est GFR ( Amer) 49.0 11/03/19 05:17 Est GFR (Non-Af Amer) 42.3 11/03/19 05:17 BUN/Creatinine Ratio 18.9 (10-20) 11/03/19 05:17 Glucose 107 mg/dl (70-99) H 11/03/19 05:17 Estimat Average Glucose 114 mg/dl 09/28/19 08:15 Hemoglobin A1c 5.6 % (4.5-5.6) 09/28/19 08:15 Calcium 8.8 mg/dl (8.5-10.1) 11/03/19 05:17 Albumin 3.3 gm/dl (3.4-5.0) L 09/28/19 08:15 Urine Color Yellow 09/28/19 08:15 Urine Appearance Clear (Clear) 09/28/19 08:15 Urine pH 6.5 (4.5-7.5) 09/28/19 08:15 Ur Specific [place] 1.012 (1.000-1.030) 09/28/19 08:15 Urine Protein Negative (Negative) 09/28/19 08:15 Urine Glucose (UA) Negative (Negative) 09/28/19 08:15 Urine Ketones Negative (Negative) 09/28/19 08:15 Urine Blood 3+ (Negative) H 09/28/19 08:15 Urine Nitrite Negative (Negative) 09/28/19 08:15 Urine Bilirubin Negative (Negative) 09/28/19 08:15 Urine Urobilinogen Negative (Negative) 09/28/19 08:15 Ur Leukocyte Esterase Trace (Negative) H 09/28/19 08:15 Urine WBC (Auto) 1-5 /hpf (0-5) 09/28/19 08:15 Urine RBC (Auto) 5-10 /hpf (0-4) H 09/28/19 08:15 U Hyaline Cast (Auto) 0 /lpf (0-5) 09/28/19 08:15 U Epithel Cells (Auto) 20-30 /lpf (0-5) H 09/28/19 08:15 Urine Bacteria (Auto) 1+ (Negative) H 09/28/19 08:15 Blood Type A Negative 09/28/19 08:15 Antibody Screen NEGATIVE 09/28/19 08:15
[2019-11-03] MEDS: SENNA 8.6 MG TAB PO SCH (17:43)
[2019-11-03] MEDS: IBRUTINIB PO SCH (21:04)
[2019-11-03] MEDS: PROPRANOLOL HCL LA 80 MG CAPCR PO SCH (21:04)
[2019-11-04] MEDS: ACETAMINOPHEN 500 MG TAB PO SCH ×3 (06:36→21:30)
[2019-11-04] MEDS: MULTIVITAMIN TAB PO SCH (08:38)
[2019-11-04] MEDS: CHOLECALCIFEROL 1,000 UNITS 25 MCG TAB PO SCH (08:38)
[2019-11-04] MEDS: DOCUSATE SODIUM 100 MG CAP PO SCH ×2 (08:38→21:30)
[2019-11-04] MEDS: PANTOprazole 40 MG TAB PO SCH (08:38)
[2019-11-04] MEDS: POTASSIUM CHLORIDE 10 MEQ TABCR PO SCH (08:38)
[2019-11-04] MEDS: GABAPENTIN 800 MG TAB PO SCH ×3 (08:39→21:30)
[2019-11-04] MEDS: MAGNESIUM OXIDE 400 MG TAB PO SCH (08:39)
[2019-11-04] MEDS: APIXABAN 5 MG TABLET PO SCH ×2 (08:40→21:30)
[2019-11-04] MEDS: SOLIFENACIN SUCCINATE PO SCH (08:40)
[2019-11-04] MEDS: HYDROmorphone HCL 2 MG TAB PO PRN ×4 (10:25→22:38)
[2019-11-04 11:33] LABS: Hematocrit (blood only) 34.1 % (37-47); Hemoglobin 10.5 g/dL (12.0-16.0); Mean Corpuscular Hemoglobin 29.1 pg (25-34); Mean Corpuscular Hgb Conc 30.8 g/dL (32-36); Mean Corpuscular Volume 94.5 fL (80-100); Mean Platelet Volume 10.5 fL (7.4-10.4); Platelet Count 308 K/uL (130-400); RDW Coefficient of Variation 14.9 % (11.5-14.5); RDW Standard Deviation 51.3 fL (36.4-46.3); Red Blood Count 3.61 M/uL (4.2-5.4); White Blood Count 10.95 K/uL (4.8-10.8)
--- NOTE | 2019-11-04 11:35 | Orthopedic Progress Note ---
Date of Service November 04, 2019 Assessment & Plan (1) Arthritis of right knee: Postop day 4 status post right total knee arthroplasty. PT/OT protocols. Weightbearing as tolerated. I will discuss with PT today how the patient has been doing in her physical therapy today. If her ambulation is significantly decreased, we may need to try and get her into the [place] swing bed if possible. DVT prophylaxis-Eliquis p.o. twice daily, SCDs, KEMAR mcintosh. Pain management-pain control issues are still somewhat of an issue. Part of that may be secondary to patient not asking for them on a scheduled basis especially at night. Consult in place for pain management who has not seen the patient yet to see if there is any other additional ways to provide her pain control. DC planning-as above. Discuss her progress in physical therapy with the therapist today. If significantly decreased or she is unsafe, plan for authorization attempt for [place] swing bed versus home health services if denied Admission and Anticipated Discharge Date Admission Date: November 03, 2019 Subjective Postop day 4 Patient sitting up in her chair at the bedside. She discussed that she did PT today with an immobilizer on her leg. She apparently had slept a fair amount yesterday evening. She thought that the nurses were going to bring her her pain medications every 4 hours but we discussed that she needed to ask for them and they could not be taken on a scheduled basis. She understands that it is just going to be painful. We want to make sure that she is safe to move around in her home as well. Since she was doing much less with her ambulation, we discussed the possibility of putting in for an authorization for [facility] swing bed. Physical Exam Physical Exam: Gloria dressing is clean, dry, intact. She only has 2 spots of drainage noted. Calves are soft and nontender. Knee is swollen compared to the left but is not erythematous and not hot to the touch. Neurovascular is intact. Toes are mobile. Results & Data ([facility]) Vital Signs (Past 12 Hours) Vital Signs Temp Pulse Resp BP Pulse Ox 11/04/19 07:44 36.7 C 66 15 113/75 96
[2019-11-04 11:49] LABS: BUN Creatinine Ratio 16.3 (10-20); Calcium 8.4 mg/dl (8.5-10.1); Creatinine Clr Calc Pharmacy 55.1 ml/min; Est GFR (African American) 46.5; Est GFR (Non-African American) 40.1; Potassium 4.2 mmol/L (3.5-5.1)
[2019-11-04] MEDS: PROPRANOLOL HCL LA 80 MG CAPCR PO SCH (21:30)
[2019-11-04] MEDS: IBRUTINIB PO SCH (21:31)
[2019-11-04] MEDS: SENNA 8.6 MG TAB PO SCH (21:31)
[2019-11-05] MEDS: ACETAMINOPHEN 500 MG TAB PO SCH ×2 (06:24→13:23)
[2019-11-05] MEDS: HYDROmorphone HCL 2 MG TAB PO PRN (06:24)
[2019-11-05] MEDS ORDERED: OXYCODONE/ACETAMINOPHEN 5mg/325mg TAB PO PRN (08:28)
[2019-11-05] MEDS ORDERED: SOD PHOSPHATE/SOD BIPHOSPHATE ENEMA 132 ML BTL PR PRN (08:28)
[2019-11-05] MEDS ORDERED: HYDROmorphone INJ 0.5 MG/0.5 ML SYR IV PRN (08:30)
[2019-11-05] MEDS: SOLIFENACIN SUCCINATE PO SCH (08:30)
[2019-11-05] MEDS: POTASSIUM CHLORIDE 10 MEQ TABCR PO SCH (08:30)
[2019-11-05] MEDS: MAGNESIUM OXIDE 400 MG TAB PO SCH (08:30)
[2019-11-05] MEDS ORDERED: OXYCODONE HCL 10 MG TABCR (OXYCONTIN) PO SCH (08:30)
[2019-11-05] MEDS: APIXABAN 5 MG TABLET PO SCH (08:31)
[2019-11-05] MEDS: GABAPENTIN 800 MG TAB PO SCH ×2 (08:31→13:23)
[2019-11-05] MEDS: CHOLECALCIFEROL 1,000 UNITS 25 MCG TAB PO SCH (08:31)
[2019-11-05] MEDS: DOCUSATE SODIUM 100 MG CAP PO SCH (08:31)
[2019-11-05] MEDS: MULTIVITAMIN TAB PO SCH (08:31)
[2019-11-05] MEDS: PANTOprazole 40 MG TAB PO SCH (08:32)
--- NOTE | 2019-11-05 09:01 | Pain Management Consultation ---
Date of Consultation November 05, 2019 Assessment & Plan (1) Acute postoperative pain of extremity: 1. Recommend discontinuation of oral hydromorphone at this time. Recommend initiation of OxyContin 10 mg p.o. every 12 with Percocet 5/3 25 mg 1 p.o. every 4 to 6 as needed pain. Patient is agreeable to utilize oxycodone products at this time. Would recommend the shortest course possible as an outpatient to minimize dependence. 2. Recommend magnesium citrate and attempts to produce bowel movement this morning. Should that fail Fleet enema has been ordered. Consider Relistor if Fleet enema fails to produce bowel movement. 3. Please call should have any questions. 4. Thank you for this consultation. (2) Arthritis of right knee: (3) Chronic pain: Chronic pain type: other chronic pain Qualified Code(s): G89.29 - Other chronic pain (4) Fibromyalgia: (5) Osteoarthritis: Osteoarthritis location: multiple joints Osteoarthritis type: unspecified Qualified Code(s): M15.9 - Polyosteoarthritis, unspecified (6) Morbid obesity: History of Present Illness Attending Physician: Jose E Meza DO History of Present Illness 59-year-old female who had a right total knee replacement performed by Dr. Meza on 10/31/2019. She has a history of fibromyalgia, lumbago, chronic pain and had previous intolerance to opiates. She utilized hydrocodone during this admission with significant nausea. She was subsequently converted to hydromorphone 4 mg p.o. every 4 as needed pain. Her pain control has been difficult through the evenings secondary to need for multiple awakenings during the evenings to utilize hydromorphone. She has been unable to participate in physical therapy secondary to pain. Pain is range between 8-10 out of 10 despite utilizing over 20 mg of oral hydromorphone in the last 24 hours. Pain is sharp stabbing aching right knee predominant. She states that typically she would rather tolerate pain than utilize opiates however she has not been successful in tolerating pain after right total knee arthroplasty. She reports utilization of OxyContin in the past but had significant withdrawal when discontinuing the medication. She had been hesitant to reinitiate oxycodone products at this time. In addition she has not had a bowel movement since 10/30/2019 despite utilization of oral laxatives. Allergies Allergy/AdvReac Type Severity Reaction Status Date / Time Opioids - Morphine Analogues AdvReac Intermediate Nausea Verified 10/31/19 08:38 morphine AdvReac Unknown hypotension, Verified 10/31/19 22:37 headache BEE STINGS Allergy Unknown swelling, Uncoded 10/31/19 08:36 dyspnea Home Medications Home Medications Medication Instructions Recorded Confirmed Type apixaban [Eliquis] 5 mg PO BID 09/27/19 10/31/19 History carisoprodol [Soma] 350 mg PO QID PRN 09/27/19 10/31/19 History cholecalciferol (vitamin D3) 125 mcg PO DAILY 09/27/19 10/31/19 History [Vitamin D3] gabapentin 800 mg PO TID 09/27/19 10/31/19 History ibrutinib [Imbruvica] 420 mg PO QPM 09/27/19 10/31/19 History magnesium 250 mg PO DAILY 09/27/19 10/31/19 History pantoprazole 40 mg PO QAM 09/27/19 10/31/19 History potassium chloride 10 meq PO DAILY 09/27/19 10/31/19 History propranolol 80 mg PO QAM 09/27/19 10/31/19 History solifenacin [Vesicare] 5 mg PO QAM 09/27/19 10/31/19 History acetaminophen 1,000 mg PO Q8 14 Days #84 tab 11/03/19 Rx Patient History Medical History Anxiety and depression Back problem Chronic pain CLL (chronic lymphocytic leukemia) 2017- stable, on Imbruvica Colitis ulcerative colitis- stable Diverticulitis 10+ years ago Fibromyalgia GERD (gastroesophageal reflux disease) controlled History of heart attack 2017 History of pulmonary embolism 2017 History of sleep apnea CPAP History of stroke evidence of remote, old "mini" strokes with no residual effects Morbid obesity Osteoarthritis Surgical History History of appendectomy History of biopsy History of colonoscopy History of endoscopy History of hernia repair History of right knee surgery History of surgery on right wrist History of tonsillectomy History of tubal ligation Family History Sister Family history of diabetes mellitus Mother Family history of esophageal cancer Other Family history of diabetes mellitus in mother Social History Smoking Status: Never smoker Do You Dip or Chew Tobacco: No; Hx Alcohol Use: No Preferred Language: Zambian Communication Ability: Effective 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 Accompanied by her sister on today's examination. Patient provided consent to speak in front of sister. Psych: Awake, alert, and oriented 3 with normal affect and mood. Recent memory appears grossly intact Eyes: Pupils are equally round and reactive to light with normal size pupils, eyelids appear normal Ear, nose, mouth, and throat: Moist nasal and oral membranes, lips and tongues appear normal, no external ear abnormalities are noted Neck: The trachea is midline without deviation and no thyromegaly is noted Respiratory: Normal respiratory effort without distress, no audible wheezes or rhonchi CV: Normal S1 and S2 Chest: Deferred Musculoskeletal: Head is normocephalic and atraumatic, gait not observed Cervical: Lordotic curve: Normal Range of motion is normal with extension, flexion, side-bending, rotation Strength: Strength is grossly equal bilaterally with 5 out of 5 strength in all planes Lumbar: Range of motion is normal with extension, flexion, side-bending, rotation Strength: Strength is grossly equal bilaterally with 5 out of 5 strength in all planes Skin: No rashes, lesions, ulcers, or induration noted. Surgical dressing was not removed at today's visit. Neuro: No nystagmus noted, the tongue is midline, the patient is able to rotate their head bilaterally : Deferred
[2019-11-05] MEDS ORDERED: MAGNESIUM CITRATE 296 ML/BTL PO SCH (10:00)
--- NOTE | 2019-11-05 11:07 | Orthopedic Progress Note ---
Date of Service November 05, 2019 Assessment & Plan (1) Arthritis of right knee: Postop day 5 status post right total knee arthroplasty. PT/OT protocols. Weightbearing as tolerated. I will discuss with PT today how the patient has been doing in her physical therapy today. If her ambulation is significantly decreased, we may need to try and get her into the [place] swing bed if possible. DVT prophylaxis-Eliquis p.o. twice daily, SCDs, KEMAR mcintosh. Pain management-patient seen by Dr. Guzman this morning. Changing her to OxyContin and Percocet. Also adding magnesium citrate to try and stimulate a bowel movement. DC planning-if patient responds well to pain medications today, she may be able to be discharged however we will wait and see how her pain medications are working. Admission and Anticipated Discharge Date Admission Date: November 03, 2019 Subjective Postop day 5 Patient sitting up in a chair eating breakfast. States that pain management was in to see her in the morning. Hands are 2 change of her pain medications and see how she responds. No new complaints. Denies shortness of breath, chest pain, lightheadedness. Physical Exam Physical Exam: Gloria dressing is intact and dry. Calves soft nontender. Neurovascular is intact. Toes are mobile. Results & Data ([facility]) Vital Signs (Past 12 Hours) Vital Signs Temp Pulse Resp BP Pulse Ox 11/04/19 23:10 37.3 C 88 14 146/68 H 92
--- NOTE | 2019-11-05 15:31 | Discharge Summary ---
Date of Service date of discharge: November 05, 2019 date of admission: 10-31-19 Admission HPI Per Admitting Provider Ms Bernardo is a 59 year old female who is here for a follow up of right knee pain, presents for pre op eval prior to a right total knee replacement at [facility]. She presents with pain and stiffness on the right side. She states that the symptoms have been chronic non-traumatic. Currently the patient states that the symptoms are moderate-severe and is described as aching, sharp and throbbing. the symptoms are aggravated by ascending stairs, descending stairs, daily activities, driving, first steps while awake, kneeling, movement, repetitive activities, sleeping on the affected side, squatting, walking, standing and weight bearing. In addition to right knee pain the patient is also experiencing decreased mobility, difficulty bending, difficulty going to sleep, instability, limping, nighttime awakening and pain. she has had prior right knee scope as well as previous visco and cortisone injections. Principal Diagnosis right knee arthritis Discharge Exam Vital Signs Temp 37.3 C 11/05/19 15:04 Pulse 88 11/05/19 15:04 Resp 14 11/05/19 15:04 BP 135/89 11/05/19 15:04 Pulse Ox 92 11/05/19 15:04 Intake & Output 11/04/19 11/05/19 11/05/19 18:59 06:59 18:59 Intake Total 400 / 675 275 / 675 240 / 240 Balance 400 / 675 275 / 675 240 / 240 Weight 122.7 kg Intake: Oral 400 / 675 275 / 675 240 / 240 Other: # Unmeasured Voids 1 Constitutional WD/WN, vitals as above no acute distress Musculoskeletal Right knee: NVDI, calf SNT, negative trinidad sign. DP palpable, able to wiggle toes/ankle movement without difficulty. VALDEMAR dressing clean dry and intact. expected post-operative bruising noted. Discharge Data Allergies Allergy/AdvReac Type Severity Reaction Status Date / Time Opioids - Morphine Analogues AdvReac Intermediate Nausea Verified 10/31/19 08:38 morphine AdvReac Unknown hypotension, Verified 10/31/19 22:37 headache BEE STINGS Allergy Unknown swelling, Uncoded 10/31/19 08:36 dyspnea Consultations 10/31/19 14:06 Consult Case Management - Discharge Planning Routine 11/03/19 15:56 Consult Pain Management Routine Procedures Performed Operation Date: 10/31/19 09:40 Actual Procedures p Right Total Knee Arthroplasty(Right) - Jose E Meza DO Ordered Studies 10/31/19 05:00 US - OR guided needle placemen Routine Hospital Course (1) Arthritis of right knee: Postop day 5 status post right total knee arthroplasty. PT/OT protocols. Weightbearing as tolerated. I will discuss with PT today how the patient has been doing in her physical therapy today. If her ambulation is significantly decreased, we may need to try and get her into the [place] swing bed if possible. DVT prophylaxis-Eliquis p.o. twice daily, SCDs, KEMAR mcintosh. Pain management-patient seen by Dr. Guzman this morning. Changing her to OxyContin and Percocet. Also adding magnesium citrate to try and stimulate a bowel movement. DC planning-if patient responds well to pain medications today, she may be able to be discharged however we will wait and see how her pain medications are working. Total Time Total Time Spent Total Time Spent (In Minutes): 20 Total Time Includes: Examination of the Patient, Discharge Planning and Medication Reconciliation Discharge Plan Discharge Items Patient Disposition: Home - Home Health Services Reason For Visit: Osteoarthritis, Right Knee Discharge Diagnosis: Osteoarthritis right knee Activity: Per Instructions section Lifting: Wait until after follow-up appointment Weightbearing: Right weightbearing Weightbearing Comment: As tolerated with walker Non-emergency contact: Surgeon Call non-emergency contact if: you have any medication questions, your temperature is above 101, your wound has increased redness, your wound has increased drainage and your wound pain has increased Follow-up/Referrals: Bassem Quintana MD [Primary Care Provider] - Diet: Regular Ambulatory Orders: Basic Metabolic Panel (Routine) Timeframe: 3 Days Location: Determined by Patient Ordered By: Jensen Prince Attending Provider Instructions: Narcan has been prescribed due to using 2 different types of pain medication. This is for oversedation from narcotic use. ACTIVITY RECOMMENDATIONS: SELF CARE INSTRUCTIONS AFTER TOTAL KNEE REPLACEMENT A. You may need to continue a physical therapy program after discharge from the hospital. There are several options available to you. Your doctor will assist you in selecting the best one for you. 1. An out-patient facility 2 to 3 times a week for therapy or home therapy. 2. Continue working on all exercises taught to you in the hospital. Your goals should be to increase bending of your knee to 90 degrees and beyond and to fully straighten your knee. B. You may progress at your own pace from walking with a walker or crutches to a cane; then to no assistive devices. C. Make walking a part of your daily routine. Be up as much as comfortable with rest periods throughout the day. Rest with leg elevation is very important. Use the ice wrap frequently for the first 3-4 weeks. D. There are no restrictions on activities. You may ride in a car, shop, participate in safety investigator/cause analyst and all social activities. E. Wear the long elastic stockings (KEMAR hose) 20 hours a day for 2 weeks after surgery. They can be removed several times a day for laundering and for a bath. F. You may shower, no tub baths until cleared by your doctor. SPECIAL CARE INSTRUCTIONS: VERY IMPORTANT TO READ AND REVIEW A. There are a few signs you need to watch for after you are home. Call [facility] if you notice any of the followin. Increased severe knee pain. Some pain is expected especially when you exercise. 2. Increased swelling in your leg or knee; pain or swelling of the calf muscle in either lower leg. 3. Any fluid drainage from the incision. 4. Shortness of breath or chest pain. B. Please call [facility] at if you have any concerns or questions about your operation or recovery. The doctor or his nurse will return your call promptly. C. You must take antibiotics before dental work, bladder, bowel or other surgery. Your doctor will provide you with a permanent care to carry describing this precaution. IMPORTANT: * REMEMBER TO TAKE ELIQUIS 5MG , TWICE DAILY UNLESS OTHERWISE DIRECTED. THIS IS YOUR BLOOD THINNER. * CALL IF INCREASED PAIN, REDNESS, DRAINAGE OR FEVER GREATER THAT 101. * WEAR KEMAR HOSE 20 HOURS PER DAY FOR 2 WEEKS. * VALDEMAR Dressing- This is a large suction dressing covering your incision. This will help pull any excess drainage from the wound and allow your incision to heal properly. You may shower with this if you can keep the unit outside of the shower. If any bleeding or leakage is noted please call your doctor's office. This will remain on your incision for 7 days and then should be removed. This can be done yourself or by the home nursing staff if applicable. The entire unit is disposable once removed. Once removed, keep incision clean and dry. If redness or drainage is noted, please call your surgeon. IF INCISION IS LEAKING THROUGH DRESSING, CALL THE OFFICE . FOLLOW UP VISIT: If appointment is not already scheduled: Please call [facility] to make a follow-up appointment for 2 weeks after your surgery at . Stand-Alone Forms: [facility], Opioid Pain Management, Smoking Cessation Medications and DC Order Prescriptions: New oxycodone [OxyContin] 10 mg Tablet,Oral Only,Ext.Rel.12 Hr 10 mg PO Q12H Qty: 6 RF: 0 oxycodone-acetaminophen [Percocet] 5-325 mg Tablet 1 tab PO Q4H PRN (Reason: pain) Qty: 18 RF: 0 polyethylene glycol 3350 [Miralax] 17 gram powder in packet 17 g PO DAILY PRN (Reason: constipation) Qty: 5 RF: 0 Narcan 4 mg/actuation spray,non-aerosol 1 sprays INTNAS ONCE Qty: 2 RF: 0 Continued carisoprodol [Soma] 350 mg Tablet 350 mg PO QID PRN (Reason: MYALGIA) RF: 0 potassium chloride 10 mEq Capsule, Extended Release 10 meq PO DAILY RF: 0 propranolol 80 mg Tablet 80 mg PO QAM RF: 0 gabapentin 800 mg Tablet 800 mg PO TID RF: 0 magnesium 250 mg Tablet 250 mg PO DAILY RF: 0 solifenacin [Vesicare] 5 mg Tablet 5 mg PO QAM RF: 0 cholecalciferol (vitamin D3) [Vitamin D3] 125 mcg (5,000 unit) Tablet 125 mcg PO DAILY RF: 0 Eliquis 5 mg Tablet 5 mg PO BID RF: 0 Imbruvica 420 mg Tablet 420 mg PO QPM RF: 0 pantoprazole 40 mg Tablet,Delayed Release (Dr/Ec) 40 mg PO QAM RF: 0 Discharge Orders: Discharge Order (Routine); Ordered 11/05/19 Ordered By: Jensen Grey/Other Patient Handouts: Preventing Deep Vein Thrombosis Admission Data Admit Date/Time: 11/03/19 14:11 Attending Provider: Jose E Meza Admit Provider: Jose E Meza Primary Care Provider: Bassem Quintana. Other Providers: Johan Rasheed Other Interventions: Discharge Summary Assessment (RN) Last Done: 11/05/19 15:04
== END 2019-11-05 17:29 | disposition home health service (06) ==
LOC: 3E 07:39 → ASU 07:39

== ENCOUNTER 2022-07-27 05:12 | Observation (INO) ==
--- NOTE | 2022-05-27 11:41 | PAT Medication Instructions ---
Medication Instructions Date of Service May 27, 2022 Home Medications apixaban 5 mg tablet (Eliquis) 5 mg PO BID carisoprodol 350 mg tablet (Soma) 350 mg PO QID PRN cholecalciferol (vitamin D3) 125 mcg (5,000 unit) tablet (Vitamin D3) 125 mcg PO QAM gabapentin 800 mg tablet 800 mg PO TID ibrutinib 420 mg tablet (Imbruvica) 420 mg PO QPM magnesium 250 mg tablet 250 mg PO QAM pantoprazole 40 mg tablet,delayed release 40 mg PO QAM propranolol 80 mg tablet 80 mg PO QPM multivitamin 1 cap PO QAM vitamin B complex 1 cap PO QAM zinc sulfate-vitamin C 200 mg-100 mg tablet 1 tab PO QAM sennosides 8.6 mg tablet (senna) 17.2 mg PO DAILY PRN guselkumab 100 mg/mL subcutaneous syringe (Tremfya) 100 mg subcut Q8WK ASK your prescriber and surgeon guselkumab 100 mg/mL subcutaneous syringe (Tremfya) 100 mg subcut Q8WK ibrutinib 420 mg tablet (Imbruvica) 420 mg PO QPM apixaban 5 mg tablet (Eliquis) 5 mg PO BID (in order for spinal or epidural anesthesia, Eliquis needs to be stopped 72 hours/3 days before surgery. Please check if okay with doctor that prescribes this to you) DO NOT take the morning of surgery carisoprodol 350 mg tablet (Soma) 350 mg PO QID PRN cholecalciferol (vitamin D3) 125 mcg (5,000 unit) tablet (Vitamin D3) 125 mcg PO QAM magnesium 250 mg tablet 250 mg PO QAM multivitamin 1 cap PO QAM vitamin B complex 1 cap PO QAM zinc sulfate-vitamin C 200 mg-100 mg tablet 1 tab PO QAM sennosides 8.6 mg tablet (senna) 17.2 mg PO DAILY PRN Take morning of surgery With a small sip of water, OTHERWISE NOTHING TO EAT OR DRINK AFTER MIDNIGHT: gabapentin 800 mg tablet 800 mg PO TID pantoprazole 40 mg tablet,delayed release 40 mg PO QAM Take evening before surgery carisoprodol 350 mg tablet (Soma) 350 mg PO QID PRN(if needed) gabapentin 800 mg tablet 800 mg PO TID propranolol 80 mg tablet 80 mg PO QPM Other Notes If you have any questions please call us at [phone] or [phone] or [phone] or [phone]
--- NOTE | 2022-05-31 08:53 | History & Physical Report ---
Date of Service May 31, 2022 date of surgery: 06/29/22 Procedure: Left Total Knee Arthroplasty Surgeon: Jose E Meza Assessment & Plan (1) Arthritis of knee, left: Plan: Risks and benefits of procedure discussed in detail and she would like to proceed with a left total knee replacement at [facility] as scheduled. will obtain medical clearance from Dr Quintana office prior to surgery as well as obtain PATs at [facility]. Will resume her Eliquis post op, f/u 2 weeks post op for routine post-operative care and x-ray, sooner if having any problems. will make arrangements for possible rehab vs SNF post op. At this point in time, has failed conservative measures and would like to proceed with surgical intervention. The risks and benefits have been discussed including, but not limited to, risk of infection, nerve injury, stiffness, loss of motion, failure to improve, etc. Reasonable outcomes and options of treatment were discussed. An explanation of appropriate alternatives to the procedure that may be advantageous were discussed and their risks and benefits, as well as the risks and benefits of not proceeding with treatment. I offered to answer any additional inquiries concerning the treatment involved. All the patient's questions were answered. The patient is agreeable, understanding of the treatment plan and alternatives, and wishes to proceed with the treatment plan. History of Present Illness Chief Complaint: left knee pain Primary Care Provider: Bassem Quintana MD Ms Bernardo is a 62 year old female who is here for a follow up of left knee pain, presents for pre op eval prior to a left total knee replacement at [facility]. She has complaints of pain and stiffness in her left knee. currently the patient states that the symptoms are moderate-severe and is described as aching, sharp and throbbing and rated as 6 out of 10. the symptoms are aggravated by ascending stairs, descending stairs, daily activities, driving, first steps while awake, kneeling, movement, repetitive activities, sleeping on the affected side, squatting, walking, standing and weight bearing. she has had prior visco and cortisone injections, per neurology notes, she has been seizure free for over a year and has been cleared for her upcoming surgery. she is unable to take NSAIDs secondary to using Eliquis. Allergies Allergy/AdvReac Type Severity Reaction Status Date / Time topiramate [From Topamax] Allergy Intermediate floaters/vision Verified 05/27/22 09:35 problems morphine AdvReac Intermediate Hypotension, Verified 05/27/22 09:35 headache Opioids - Morphine Analogues AdvReac Intermediate Nausea Verified 05/27/22 09:35 BEE STINGS Allergy Severe Swelling, Uncoded 05/27/22 09:35 dyspnea Home Medications Medication Instructions Recorded Confirmed Type apixaban 5 mg tablet (Eliquis) 5 mg PO BID 09/27/19 05/27/22 History carisoprodol 350 mg tablet (Soma) 350 mg PO QID PRN MYALGIA 09/27/19 05/27/22 History cholecalciferol (vitamin D3) 125 125 mcg PO QAM 09/27/19 05/27/22 History mcg (5,000 unit) tablet (Vitamin D3) gabapentin 800 mg tablet 800 mg PO TID 09/27/19 05/27/22 History ibrutinib 420 mg tablet (Imbruvica) 420 mg PO QPM 09/27/19 05/27/22 History magnesium 250 mg tablet 250 mg PO QAM 09/27/19 05/27/22 History pantoprazole 40 mg tablet,delayed 40 mg PO QAM 09/27/19 05/27/22 History release propranolol 80 mg tablet 80 mg PO QPM 09/27/19 05/27/22 History multivitamin 1 cap PO QAM 11/14/20 05/27/22 History vitamin B complex 1 cap PO QAM 11/14/20 05/27/22 History zinc sulfate-vitamin C 200 mg-100 1 tab PO QAM 11/14/20 05/27/22 History mg tablet sennosides 8.6 mg tablet (senna) 17.2 mg PO DAILY PRN Constipation 01/13/21 05/27/22 History guselkumab 100 mg/mL subcutaneous 100 mg subcut Q8WK 09/17/21 05/27/22 History syringe (Tremfya) Past Med/Surg History Medical History Anxiety and depression Chronic fatigue Chronic pain CKD (chronic kidney disease) CLL (chronic lymphocytic leukemia) 2017- stable, on Imbruvica Terry Caraballo infection "DX A LONG TIME AGO" FOLLOWS WITH RHUEMATOLOGY Fibromyalgia GERD (gastroesophageal reflux disease) History of blood transfusion d/t rectal sheath hematoma History of COVID-19 diagnosed via home test only 08/24/21--RESOLVED History of heart attack 2017--follows with Dr. Suersh in [place] History of pulmonary embolism 2017- REASON FOR ELIQUIS (BROKEN ANKLE AT TIME OF DX>DVT) History of sleep apnea CPAP History of stroke Evidence of remote, old "mini" strokes on imaging with no residual effects Morbid obesity BMI 45.9 Psoriatic arthritis Ulcerative colitis Vertigo chronic x yrs, prn meclizine, denies change or worsening Surgical History H/O umbilical hernia repair History of appendectomy History of biopsy breast biopsy-benign History of colonoscopy History of esophagogastroduodenoscopy (EGD) History of surgery on left wrist ganglion cyst excision History of tonsillectomy History of total knee replacement RT History of tubal ligation Family History Sister Family history of diabetes mellitus Mother Family history of esophageal cancer Family history of reaction to anesthesia difficulty waking Brother Family history of reaction to anesthesia difficulty waking Other Family history of diabetes mellitus in mother Social History Smoking Status: Never smoker Second Hand Exposure: Yes ( A CHILD); Hx Alcohol Use: No Hx Substance Use: Yes Last Used Substance: Unknown Last Used Substance Other:: LAST USED>1 WEEK AGO (ADVISED) Preferred Language: Malay Communication Ability: Effective Director Of Medical Services Required: No Beliefs That Will Affect Care: None marital status: / Current Living Situation: Family Current Living Situation Comment: LIVES WITH DAUGHTER Feels Safe at Home: Yes Safety Concerns: Feels Safe At This Time Assistive Devices: Cane, CPAP and Glasses Review of Systems Constitutional: no fever, no chills and no sweats Respiratory: no cough and no dyspnea Cardiovascular: no chest pain, no dyspnea and no orthopnea Gastrointestinal: no abdominal pain, no nausea and no vomiting Musculoskeletal: as per Subjective / HPI Physical Exam Physical Exam: HT: 5ft 5in WT: 125kg Constitutional: WD/WN, vitals as above no acute distress Respiratory: normal respiratory effort, lungs clear to auscultation no respiratory distress, no labored breathing and does not use accessory muscles Cardiovascular: RRR, no murmur, no edema Gastrointestinal (Abdomen): normal bowel sounds, soft, nontender, no hepatosplenomegaly Musculoskeletal: Knee: + knee abnormal to inspection (LEFT KNEE), + effusion (+1 effusion), + limited ROM of knee (ROM 0/3/110), + knee ROM with crepitation, + joint line tenderness (medial joint line) and + Iglesia's sign positive; no deformity, no skin erythema, no ecchymosis, no valgus laxity, no varus laxity, anterior drawer test negative, Tali's sign negative and pivot shift test negative Results & Data Results & Data Diagnostic Findings Left Knee X-ray: left knee series confirm advanced degenerative changes to the left knee, greatest medial compartments and patellofemoral joint, showing joint space narrowing, osteophyte formation and subchondral sclerosis. no acute bony pathology noted.
--- NOTE | 2022-05-31 13:30 | Anesthesiology Consultation ---
Date of Service May 31, 2022 Assessment & Plan (1) Encounter for pre-operative examination: - check BSG am DOS. - PAT testing to be faxed to PCP. bolus not ordered given previous cardiology recommendations regarding apixaban dion-operatively. - neurology 04/01/22: "...in past she was followed for suspected seizures, she has not had any of these symptoms for > 1 year and had an unremarkable EEG and normal MRI of brain...cleared from a neurological standpoint to proceed with surgery at this time..." (surgery was re-scheduled pending completion of EEG, neurology clearance). -cardiology pre-op evaluation 10/12/21: "...recent EKG was reviewed by me...concur with recorded interpretation...poor functional capacity...due to shortness of breath, physical deconditioning, degenerative joint disease, adn elevated BMI...greater risk for perioperative cardiovascular complications...class I with a perioperative risk of major cardiac event under general anesthesia of 0.4%...low risk for the proposed procedure...cardiac care has been optimized in anticipation of surgery...Although history of pulmonary embolism is not a cardiac problem, I wouldrecommend not withholding apixaban for more than 48 hours perioperatively..." - Eliquis instructions: per prescriber and surgeon. Patient was advised that in order for spinal anesthesia, Eliquis needs to be held 72 hours/3 days prior to surgery. Pt stated will confirm with prescriber and surgeon and notify our office if any concerns with this. - anesthesia recordright TKA 10/31/2019: SAB at L3-L4 x 1 attempt + PNB at [facility]. - Outpatient joint assessment: Patient is currently scheduled for inpatient pathway. If re-evaluated pending system levels during current pandemic/surgeon requests outpatient pathway, patient is not acceptable candidate for outpatient joint program from anesthesia standpoint. - Case discussed in detail with Dr. Trevino who advised pt did not need further evaluation prior to planned surgery from his standpoint. Chart Review Chart Review: Acceptable Risk for Surgery and Patient seen in Pre Admission Testing Teaching & Discussion Pre-Anesthesia Teaching/Discussion Notes: Instructed NPO after midnight before surgery, except medications with 15 cc of water. Medication instructions provided according to the PAT guidelines. History Surgery Operation Date: 06/29/22 09:05 Proposed Procedures p Left Total Knee Arthroplasty - Jose E Meza DO Height/Weight Height: 5 ft 4 in Weight: 124.738 kg Allergies Allergy/AdvReac Type Severity Reaction Status Date / Time topiramate [From Topamax] Allergy Intermediate floaters/vision Verified 05/27/22 09:35 problems morphine AdvReac Intermediate Hypotension, Verified 05/27/22 09:35 headache Opioids - Morphine Analogues AdvReac Intermediate Nausea Verified 05/27/22 09:35 BEE STINGS Allergy Severe Swelling, Uncoded 05/27/22 09:35 dyspnea Medications Home Medications Medication Instructions Recorded Confirmed Last Taken apixaban 5 mg tablet (Eliquis) 5 mg PO BID 09/27/19 05/27/22 10/26/19 22:00 carisoprodol 350 mg tablet (Soma) 350 mg PO QID PRN MYALGIA 09/27/19 05/27/22 10/30/19 01:00 cholecalciferol (vitamin D3) 125 125 mcg PO QAM 09/27/19 05/27/22 10/28/19 10:00 mcg (5,000 unit) tablet (Vitamin D3) gabapentin 800 mg tablet 800 mg PO TID 09/27/19 05/27/22 10/30/19 10:00 ibrutinib 420 mg tablet (Imbruvica) 420 mg PO QPM 09/27/19 05/27/22 10/30/19 22:00 magnesium 250 mg tablet 250 mg PO QAM 09/27/19 05/27/22 10/30/19 10:00 pantoprazole 40 mg tablet,delayed 40 mg PO QAM 09/27/19 05/27/22 10/30/19 10:00 release propranolol 80 mg tablet 80 mg PO QPM 09/27/19 05/27/22 10/30/19 22:00 multivitamin 1 cap PO QAM 11/14/20 05/27/22 Unknown vitamin B complex 1 cap PO QAM 11/14/20 05/27/22 Unknown zinc sulfate-vitamin C 200 mg-100 1 tab PO QAM 11/14/20 05/27/22 Unknown mg tablet sennosides 8.6 mg tablet (senna) 17.2 mg PO DAILY PRN Constipation 01/13/21 05/27/22 Unknown guselkumab 100 mg/mL subcutaneous 100 mg subcut Q8WK 09/17/21 05/27/22 Unknown syringe (Tremfya) Past Medical History Medical History (Updated 05/31/22 @ 15:49 by Almaz Agudelo PA-C) Anxiety and depression Chronic fatigue Chronic pain CKD (chronic kidney disease) CLL (chronic lymphocytic leukemia) 2017- stable, on Imbruvica Diabetes A1c 6.5% on pre-op labs 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 Suresh in [place] History of pulmonary embolism 2017- REASON FOR ELIQUIS (BROKEN ANKLE AT TIME OF DX>DVT) History of sleep apnea CPAP-not currently using treatment due to recall History of stroke Evidence of remote, old "mini" strokes on imaging with no residual effects Morbid obesity BMI 45.9 Psoriatic arthritis Seizure last seizure > 10 yrs ago Ulcerative colitis Vertigo chronic x yrs, prn meclizine, denies change or worsening Patient denies h/o heart failure. Exercise / Class Metabolic Activity III < 4 Walking/Shop/Light housework (denies chest discomfort or shortness of breath with usual activities) Past Family History Family History Sister Family history of diabetes mellitus Mother Family history of esophageal cancer Family history of reaction to anesthesia difficulty waking Brother Family history of reaction to anesthesia difficulty waking Other Family history of diabetes mellitus in mother Past Surgical History Surgical History H/O umbilical hernia repair History of appendectomy History of biopsy breast biopsy-benign History of colonoscopy History of esophagogastroduodenoscopy (EGD) History of surgery on left wrist ganglion cyst excision History of tonsillectomy History of total knee replacement RT History of tubal ligation Past Anesthesia History No Hx of Anesthesia Complications and Other (multiple family members slow to wake, denies re-intubation) History of PONV History of PONV (with ether per pt, denies recent issues) and Hx of Motion Sickness Social History Smoking Status: Never smoker Do You Dip or Chew Tobacco: No Hx Alcohol Use: Yes alcohol intake frequency: holidays/special occasions only Hx Substance Use: Yes substance use type: marijuana Last Used Substance: Unknown Last Used Substance Other:: LAST USED>1 WEEK AGO (ADVISED) Review of Systems Patient denies chest pain, shortness of breath, dyspnea on exertion, fever, chills, cough, wheezing, or palpitations. Physical Exam Vital Signs Vitals BP 124/80 P 71 TEMP 98.1 SP02 97% on RA RESP 17 Physical Full cervical extension range of motion without pain TMD 3.5 finger breadths Mallampati Score 3 Dentition: intact, denies chipped or loose teeth, caps/crowns, implants or bridges Lungs: normal respiratory effort. Clear throughout to auscultation, no adventitious breath sounds Cardiac: regular rate and rhythm, no murmurs noted Carotid arteries: negative bruit bilat Lab Results Anesthesia Preop Results Results Anesthesia Widget: WBC 8.88 K/ul (4.8-10.8) 05/31/22 Hgb 12.4 g/dl (12.0-16.0) 05/31/22 Hct 38.7 % (37.0-47.0) 05/31/22 Plt 302 K/uL (130-400) 05/31/22 Na 140 mmol/L (136-145) 05/31/22 K 4.1 mmol/L (3.5-5.1) 05/31/22 Cl 106 mmol/L (98-107) 05/31/22 CO2 29 mmol/L (21-32) 05/31/22 BUN 22 mg/dl (6-23) 05/31/22 Creat 1.41 mg/dl (0.6-1.2) H 05/31/22 Glucose Level 165 mg/dl (70-99(Fasting)) H 05/31/22 PT 10.8 Seconds (9.0-12.0) 05/31/22 PTT 26.6 Seconds (21.0-31.0) 05/31/22 INR 1.0 (0.9-1.1) 05/31/22 HA1c 6.5 % (4.5-5.6) H 05/31/22 Urine Color Yellow 05/31/22 Urine Appearance Clear (Clear) 05/31/22 Urine pH 5.0 (4.5-7.5) 05/31/22 Urine Specific [place] 1.022 (1.000-1.030) 05/31/22 Urine Protein Negative (Negative) 05/31/22 Urine Glucose (UA) Negative (Negative) 05/31/22 Urine Ketones Trace (Negative) H 05/31/22 Urine Blood 3+ (Negative) H 05/31/22 Urine Nitrite Negative (Negative) 05/31/22 Urine Bilirubin Negative (Negative) 05/31/22 Urine Urobilinogen Negative (Negative) 05/31/22 Urine Leukocyte Esterase Trace (Negative) H 05/31/22 Urine WBC (Auto) 1-5 /hpf (0-5) 05/31/22 Urine RBC (Auto) 5-10 /hpf (0-4) H 05/31/22 Urine Hyaline Casts (Auto) 1-5 /lpf (0-5) 05/31/22 Urine Epithelial Cells (Auto) >30 /lpf (0-5) H 05/31/22 Urine Bacteria (Auto) Negative (Negative) 05/31/22 Blood Type A Negative 05/31/22 Antibody Screen NEGATIVE 05/31/22 Testing Electrocardiogram Date: 05/31/22 Sinus rhythm with 1st degree AV block, rate 64 bpm Incomplete RBBB Chest X-Ray Date: 05/31/22 No lines and tubes are seen. The cardiomediastinal silhouette is normal. The lungs are clear. No evidence of pleural effusion or pneumothorax. IMPRESSION: No acute chest disease. Echocardiogram Date: 11/27/20 EF 60-65% Normal LV wall motion Mildly dilated RA Grade I diastolic dysfunction Mild mitral and tricuspid regurgitation Mildly enlarged RV Stress Test Date: 01/19/21 Pharmacologic EF 81% no fixed or reversible defects are identified Pulmonary Function Test Date: 09/29/21 Mild reduction in ventilatory capacity, has the appearance of a pseudorestriction. No significant postbronchodilator change COVID-19 Risk Screen Screening Information COVID-19 Screen Date: 05/31/22 Exposure 21 Days Family/Household +COVID Last 21 Days: No Exposure 10 Days Any COVID Exposure Last 10 Days: No Symptoms Last 10 Days Experienced COVID Sx Last 10 Days: No + COVID 0-90 Days COVID + in Last 0-90 Days: No
--- NOTE | 2022-06-25 14:40 | Communication Note ---
Date of Service: June 25, 2022 - surgeon's office made aware of rash. To surgeon'
--- NOTE | 2022-06-29 11:56 | History & Physical Report ---
Date of Service June 29, 2022 date of surgery: 07/27/22 Procedure: Left Total Knee Arthroplasty Surgeon: Jose E Meza Assessment & Plan (1) Arthritis of knee, left: Plan: Risks and benefits of procedure discussed in detail and she would like to proceed with a left total knee replacement at [facility] as scheduled. will obtain medical clearance from Dr Quintana office prior to surgery as well as obtain PATs at [facility]. Will resume her Eliquis post op, f/u 2 weeks post op for routine post-operative care and x-ray, sooner if having any problems. will make arrangements for possible rehab vs SNF post op. At this point in time, has failed conservative measures and would like to proceed with surgical intervention. The risks and benefits have been discussed including, but not limited to, risk of infection, nerve injury, stiffness, loss of motion, failure to improve, etc. Reasonable outcomes and options of treatment were discussed. An explanation of appropriate alternatives to the procedure that may be advantageous were discussed and their risks and benefits, as well as the risks and benefits of not proceeding with treatment. I offered to answer any additional inquiries concerning the treatment involved. All the patient's questions were answered. The patient is agreeable, understanding of the treatment plan and alternatives, and wishes to proceed with the treatment plan. History of Present Illness Chief Complaint: left knee pain Primary Care Provider: Bassem Quintana MD Ms Bernardo is a 62 year old female who is here for a follow up of left knee pain, presents for pre op eval prior to a left total knee replacement at [facility]. She has complaints of pain and stiffness in her left knee. currently the patient states that the symptoms are moderate-severe and is described as aching, sharp and throbbing and rated as 6 out of 10. the symptoms are aggravated by ascending stairs, descending stairs, daily activities, driving, first steps while awake, kneeling, movement, repetitive activities, sleeping on the affected side, squatting, walking, standing and weight bearing. she has had prior visco and cortisone injections, per neurology notes, she has been seizure free for over a year and has been cleared for her upcoming surgery. she is unable to take NSAIDs secondary to using Eliquis. Allergies Allergy/AdvReac Type Severity Reaction Status Date / Time topiramate [From Topamax] Allergy Intermediate floaters/vision Verified 05/27/22 09:35 problems morphine AdvReac Intermediate Hypotension, Verified 05/27/22 09:35 headache Opioids - Morphine Analogues AdvReac Intermediate Nausea Verified 05/27/22 09:35 BEE STINGS Allergy Severe Swelling, Uncoded 05/27/22 09:35 dyspnea Home Medications Medication Instructions Recorded Confirmed Type apixaban 5 mg tablet (Eliquis) 5 mg PO BID 09/27/19 05/27/22 History carisoprodol 350 mg tablet (Soma) 350 mg PO QID PRN MYALGIA 09/27/19 05/27/22 History cholecalciferol (vitamin D3) 125 125 mcg PO QAM 09/27/19 05/27/22 History mcg (5,000 unit) tablet (Vitamin D3) gabapentin 800 mg tablet 800 mg PO TID 09/27/19 05/27/22 History ibrutinib 420 mg tablet (Imbruvica) 420 mg PO QPM 09/27/19 05/27/22 History magnesium 250 mg tablet 250 mg PO QAM 09/27/19 05/27/22 History pantoprazole 40 mg tablet,delayed 40 mg PO QAM 09/27/19 05/27/22 History release propranolol 80 mg tablet 80 mg PO QPM 09/27/19 05/27/22 History multivitamin 1 cap PO QAM 11/14/20 05/27/22 History vitamin B complex 1 cap PO QAM 11/14/20 05/27/22 History zinc sulfate-vitamin C 200 mg-100 1 tab PO QAM 11/14/20 05/27/22 History mg tablet sennosides 8.6 mg tablet (senna) 17.2 mg PO DAILY PRN Constipation 01/13/21 05/27/22 History guselkumab 100 mg/mL subcutaneous 100 mg subcut Q8WK 09/17/21 05/27/22 History syringe (Tremfya) Past Med/Surg History Medical History Anxiety and depression Chronic fatigue Chronic pain CKD (chronic kidney disease) CLL (chronic lymphocytic leukemia) 2017- stable, on Imbruvica Diabetes A1c 6.5% on pre-op labs 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 Suresh in [place] History of pulmonary embolism 2017- REASON FOR ELIQUIS (BROKEN ANKLE AT TIME OF DX>DVT) History of sleep apnea CPAP-not currently using treatment due to recall History of stroke Evidence of remote, old "mini" strokes on imaging with no residual effects Morbid obesity BMI 45.9 Psoriatic arthritis Seizure last seizure > 10 yrs ago Ulcerative colitis Vertigo chronic x yrs, prn meclizine, denies change or worsening Surgical History H/O umbilical hernia repair History of appendectomy History of biopsy breast biopsy-benign History of colonoscopy History of esophagogastroduodenoscopy (EGD) History of surgery on left wrist ganglion cyst excision History of tonsillectomy History of total knee replacement RT History of tubal ligation Family History Sister Family history of diabetes mellitus Mother Family history of esophageal cancer Family history of reaction to anesthesia difficulty waking Brother Family history of reaction to anesthesia difficulty waking Other Family history of diabetes mellitus in mother Social History Smoking Status: Never smoker Second Hand Exposure: Yes ( A CHILD); Hx Alcohol Use: Yes Hx Substance Use: Yes Last Used Substance: Unknown Last Used Substance Other:: LAST USED>1 WEEK AGO (ADVISED) Preferred Language: Polish Communication Ability: Effective Gauge Checker Required: No Beliefs That Will Affect Care: None marital status: / Current Living Situation: Family Current Living Situation Comment: LIVES WITH DAUGHTER Feels Safe at Home: Yes Assistive Devices: Cane, CPAP and Glasses Review of Systems Constitutional: no fever, no chills and no sweats Respiratory: no cough and no dyspnea Cardiovascular: no chest pain, no dyspnea and no orthopnea Gastrointestinal: no abdominal pain, no nausea and no vomiting Musculoskeletal: as per Subjective / HPI Physical Exam Physical Exam: HT: 5ft 5in WT: 125kg Constitutional: WD/WN, vitals as above no acute distress Respiratory: normal respiratory effort, lungs clear to auscultation no respiratory distress, no labored breathing and does not use accessory muscles Cardiovascular: RRR, no murmur, no edema Gastrointestinal (Abdomen): normal bowel sounds, soft, nontender, no hepatosplenomegaly Musculoskeletal: Knee: + knee abnormal to inspection (LEFT KNEE), + effusion (+1 effusion), + limited ROM of knee (ROM 0/3/110), + knee ROM with crepitation, + joint line tenderness (medial joint line) and + Iglesia's sign positive; no deformity, no skin erythema, no ecchymosis, no valgus laxity, no varus laxity, anterior drawer test negative, Tali's sign negative and pivot shift test negative Results & Data Results & Data Diagnostic Findings Left Knee X-ray: left knee series confirm advanced degenerative changes to the left knee, greatest medial compartments and patellofemoral joint, showing joint space narrowing, osteophyte formation and subchondral sclerosis. no acute bony pathology noted.
[~2022-07-27 05:12] MED LIST changes: -CEFAZOLIN 3000MG 72.5 ML IV SCH; -LR 500ML BOLUS, THEN 15ML/HR IV SCH; +PREGABALIN 75 MG CAP PO SCH; -ROPIVACAINE 0.5% HCL/PF 150 MG, BUPIVACAINE 0.5% MPF 30 ML, EPINEPHrine 30MG/30ML (OR U... INFIL SCH; +ROPIVACAINE 0.5% HCL/PF 150 MG, BUPIVACAINE 0.75% MPF 20 ML, EPINEPHrine 30MG/30ML (OR ... INSTIL SCH
[2022-07-27] MEDS ORDERED: METOCLOPRAMIDE HCL 10 MG TABLET PO SCH (06:00)
[2022-07-27] MEDS ORDERED: TRANEXAMIC ACID 1,000 MG **IV Pre-op IV SCH (06:00)
[2022-07-27] MEDS ORDERED: LR 15ML/HR IV SCH (06:00)
[2022-07-27] MEDS ORDERED: FAMOTIDINE 20 MG TAB PO SCH (06:00)
[2022-07-27] MEDS ORDERED: ROPIVACAINE 0.5% HCL/PF 150 MG, BUPIVACAINE 0.75% MPF 20 ML, EPINEPHrine 30MG/30ML (OR ... INSTIL SCH (06:00)
[2022-07-27] MEDS ORDERED: GABAPENTIN 600 MG DOSE PO SCH (06:00)
[2022-07-27] MEDS ORDERED: CeleBREX 200 MG CAP PO SCH (06:00)
[2022-07-27] MEDS ORDERED: TRANEXAMIC ACID 1,000 MG **IV Intra-op IV SCH (06:00)
[2022-07-27] MEDS ORDERED: ACETAMINOPHEN 500 MG TAB PO SCH (06:00)
[2022-07-27] MEDS ORDERED: dexAMETHasone 4 MG TAB PO SCH (06:00)
[2022-07-27] MEDS ORDERED: EPINEPHrine INJ 1 MG/ML AMP ONE (06:23)
[2022-07-27] MEDS ORDERED: BUPIVACAINE 0.5 % 5 MG/1 ML PF 10ML VIAL ONE (06:23)
[2022-07-27] MEDS ORDERED: DEXAMETHASONE SOD INJ 4 MG/ML VIAL ONE (06:24)
[2022-07-27] MEDS ORDERED: BUPIVACAINE 0.25% PF 30 ML VIAL ONE (06:24)
[2022-07-27] MEDS ORDERED: MIDAZOLAM HCL 1 MG/ML 2ML VIAL ONE (06:26)
[2022-07-27] MEDS ORDERED: fentaNYL citrate PF 100 MCG/2 ML VIAL ONE (06:28)
[2022-07-27] MEDS ORDERED: LIDOCAINE 2% 2 ML VIAL/AMP(20MG/ML) INFIL ONE (06:29)
[2022-07-27] MEDS ORDERED: PROPOFOL IV EMULSION 10 MG/ML 20 ML VIAL IV ONE (06:30)
[2022-07-27] MEDS ORDERED: ONDANSETRON INJ 2 MG/ML 2 ML VIAL ONE (06:30)
[2022-07-27] MEDS ORDERED: ePHEDrine sulfate 50 MG/ML AMP IV PRN (06:52)
[2022-07-27] MEDS ORDERED: ATROPINE SULFATE 0.1 MG/ML 10ML SYR IV PRN (06:52)
[2022-07-27] MEDS ORDERED: fentaNYL citrate PF 100 MCG/2 ML VIAL IV PRN (06:52)
[2022-07-27] MEDS ORDERED: ONDANSETRON INJ 2 MG/ML 2 ML VIAL IV PRN ×2 (06:52→10:16)
[2022-07-27] MEDS ORDERED: ORTHO JOINT ANESTHETIC ONE (07:05)
--- NOTE | 2022-07-27 07:09 | History & Physical Bridge Note ---
Date of Service July 27, 2022 History & Physical Bridge Note I have examined the patient, reviewed the History & Physical and in the interval since the performance of the History & Physical I have noted the following changes of clinical significance: no changes noted
[2022-07-27] MEDS ORDERED: PHENYLEPHRINE HCL 10 MG/ML VIAL ONE (07:41)
[2022-07-27] MEDS ORDERED: ePHEDrine sulfate 50 MG/ML AMP ONE (07:41)
[2022-07-27] MEDS ORDERED: GLYCOPYRROLATE 0.2 MG/ML VIAL ONE (07:50)
--- NOTE | 2022-07-27 08:33 | Operative Report ---
Post Operative Report Pre & Post Diagnosis Operation Date: 07/27/22 07:15 Pre-Op Diagnosis: Left Knee Osteoarthritis Post-Op Diagnosis: Left Knee Osteoarthritis morbid obesity I identified the patient and participated in the time-out.: Yes Procedure Operation Date: 07/27/22 07:15 Actual Procedures p Left Total Knee Arthroplasty(Left) utilizing [employer] journey 2 patient matched total knee arthroplasty size femur 6 tibia 5 poly 15 patella 32 sima- Jose E Meza DO Surgeon Jose E Meza DO [employer] Supervisor Jensen HANNAH Estimated Blood Loss 5 Findings Consistent with Post-Op Diagnosis Patient presents with severe end-stage tricompartmental degenerative joint disease left knee eburnated [id number] subchondral cystic changes marginal osteophytes with moderate to large effusion Specimens Bone and cartilage Drains Medium bore Hemovac Anesthesia Type MAC Spinal Regional Complications none Disposition Accompanied Patient To Recovery: No Disposition: Recovery Room Indications Patient presents with severe end-stage tricompartmental degenerative joint disease left knee failed attempted conservative management occluding physical therapy anti-inflammatories relative rest activity modification corticosteroid injection viscosupplementation above intraoperative findings are noted Description of Procedure After proper prepping and draping of the left lower extremity anterior midline incision was made over the region of the extensor extensor mechanism after meticulous hemostasis was obtained and maintained in subcutaneous The patient is 126.2 kg with a BMI of 46.3. The patient's habitus did contribute to significant technical difficulty requiring extra time. Additional help was necessary in order to position the patient safely. The use of specialized (longer, deeper) retractors and/or instruments were needed. Due to this, the procedure took 20] minutes longer than the standard total knee arthroplasty."tissues a medial parapatellar incision was made The patella was subluxed lateralward the medial lateral gutter were cleaned from any hypertrophic synovitis and scar tissue of the distal femoral block was placed and the distal femoral osteotomy cut was made subsequently the chamfers anterior and posterior osteotomy cuts were made utilizing the 4-in-1 block the tibia was subsequently subluxed anteriorward medial and ateral meniscal remnants were excised in their entirety remnants of the anterior and posterior cruciate ligaments were excised in their entirety excellent exposure of the proximal tibia was obtained the tibial osteotomy guide was placed on the proximal tibial osteotomy cut was made once again the knee was irrigated with copious amounts of sterile saline solution the patella was subsequently everted lateralward thickened scar tissue around the patella was removed the patella was subsequently cut utilizing a freehand technique and was drilled prepared for final preparation and placement of patella socially flexion-extension gaps were checked and the equal and symmetric trials were placed to the appropriate femoral and tibial trials with poly-spacer being placed for equal flexion and extension gaps and full range of motion including extension to 0 and flexion to 140 the trial components after having been taken to recovery range of motion was subsequently removed meticulous hemostasis was obtained and maintained subsequently a knee block injection of joint cocktail including ropivacaine 0.5% 150 mg. Bupivacaine 0.5% epinephrine 1-200,030 mL's toradol 30 mg dexamethasone 4 mg ketamine 10 mg clonidine 100 micrograms normal saline solution 30 mg was infiltrated into the soft tissues of the posterior knee medial lateral gutters and periosteal synovium special attention was paid to protect neurovascular structures at all times subsequently trial components having been removed the knee was irrigated with sterile saline solution. debris was removed the proximal tibia was subsequently prepared and was made ready for the placement of the tibial component tibial component was also cemented and tamped into position the femoral component was subsequently placed and cemented in the position the patellar component was subsequently cemented in position because hemostasis once again obtained and maintained wound having been thoroughly irrigated with debridement and debridement lavage was performed as well as a medial parapatellar incision closed with #1 Vicryl in interrupted fashion subcutaneous was closed with #2 Vicryl skin was closed with skin clips. PA-C was necessary for prepping and drapping as well as wound closure of deep fascia Sub cutaneous tissue and skin and was necessary for the case. A sterile compressive dressing was placed patient was taken to recovery in stable condition of report dictated by Derrick I attest to the content of the Intraoperative Record and any orders documented therein. Any exceptions are noted below.Due to the complex nature of the procedure, the entire surgery was performed with the operational assistance of Jensen HANNAH. The speech assistant, under direct supervision, was involved in the actual performance of all aspects of the surgical procedure including hemostasis, tissue retraction and incision, instrument management, patient p ositioning, and wound closure. I attest to the content of the Intraoperative Record and any orders documented therein. Any exceptions are noted below.
--- NOTE | 2022-07-27 09:54 | XRay Report ---
XR knee LT 1 or 2V routine HISTORY: 62 years-old Female Surgical Post Op left knee arthroplasty COMPARISON: None TECHNIQUE: 2 views of the left knee FINDINGS: Total joint arthroplasty and patellar resurfacing. Surgical drainage catheter is noted with expected postoperative soft tissue swelling with deep tissue air. IMPRESSION: Total joint arthroplasty with expected postoperative changes. ACT 112: Negative or not required by law. The above report was generated using voice recognition software. It may contain grammatical, syntax o r spelling errors. Electronically signed by: Deric Carlos M.D. 07/27/2022 9:53 AM
[2022-07-27] MEDS ORDERED: HYDROmorphone INJ 0.5 MG/0.5 ML SYR IV PRN (10:16)
[2022-07-27] MEDS ORDERED: MAGNESIUM HYDROXIDE SUSP 30 ML UDC PO PRN (10:16)
[2022-07-27] MEDS ORDERED: bisacodyL 10 MG SUPP PR PRN (10:16)
[2022-07-27] MEDS ORDERED: NALOXONE HCL 0.4 MG/1 ML VIAL/CARP IV PRN (10:16)
[2022-07-27] MEDS ORDERED: diphenhydrAMINE 50 MG/ML VIAL IV PRN (10:16)
--- NOTE | 2022-07-27 10:25 | Anesthesiology Progress Note ---
Date of Service July 27, 2022 Anesthesia Post Procedure Vital Signs Vital Signs: Temp Pulse Resp BP Pulse Ox O2 Del Method O2 Flow Rate 07/27/22 10:05 75 12 109/65 93 Room Air 07/27/22 09:50 36.4 C L 74 12 116/65 95 Room Air 07/27/22 09:40 79 18 119/71 95 Room Air 07/27/22 09:30 76 12 107/67 100 Oxymask 5 07/27/22 09:20 79 16 115/61 99 Oxymask 5 07/27/22 09:15 36.3 C L 80 14 114/69 96 Oxymask 5 Pain Intensity Left Knee: Pain Intensity: 0 Transfer of Care Handoff Completed per policy Notes Mental Status: alert / awake / arousable Patient Amnestic to Procedure: Yes Nausea / Vomiting: adequately controlled Pain: adequately controlled Airway Patency, RR, SpO2: stable & adequate BP & HR: stable & adequate Hydration State: stable & adequate Anesthetic Complications: no major complications apparent
[2022-07-27] MEDS: SODIUM CHLORIDE 0.9% 1000ML 1,000 ML IV SCH ×2 (10:37→20:28)
[2022-07-27] MEDS: KETOROLAC TROMETHAMINE 15 MG/ML VIAL IV SCH ×3 (10:59→22:20)
[2022-07-27] MEDS: ACETAMINOPHEN 500 MG TAB PO SCH ×2 (14:41→22:20)
[2022-07-27] MEDS: GABAPENTIN 800 MG TAB PO SCH ×2 (14:41→20:27)
[2022-07-27] MEDS: ceFAZolin 2000MG 2,000 MG/15 ML SYR IV SCH ×2 (15:31→22:20)
[2022-07-27] MEDS: SENNA 8.6 MG TAB PO SCH (20:28)
[2022-07-27] MEDS: DOCUSATE SODIUM 100 MG CAP PO SCH (20:28)
[2022-07-27] MEDS: PROPRANOLOL HCL 80 MG TAB PO SCH (20:28)
[2022-07-28] MEDS: ACETAMINOPHEN 500 MG TAB PO SCH ×3 (04:48→20:26)
[2022-07-28] MEDS: KETOROLAC TROMETHAMINE 15 MG/ML VIAL IV SCH (04:48)
[2022-07-28] MEDS: ZINC SULFATE 220 MG CAPSULE PO SCH (07:58)
[2022-07-28] MEDS: MAGNESIUM OXIDE 400 MG TAB PO SCH (07:58)
[2022-07-28] MEDS: CHOLECALCIFEROL 5,000 UNITS 125 MCG TAB PO SCH (07:59)
[2022-07-28] MEDS: PANTOprazole 40 MG TAB PO SCH (07:59)
[2022-07-28] MEDS: GABAPENTIN 800 MG TAB PO SCH ×3 (07:59→20:27)
[2022-07-28] MEDS: ASCORBIC ACID 500 MG TAB PO SCH (07:59)
[2022-07-28] MEDS: APIXABAN 5 MG TABLET PO SCH ×2 (07:59→20:27)
[2022-07-28] MEDS: VITAMIN B COMPLEX TAB PO SCH (07:59)
[2022-07-28] MEDS: MULTIVITAMIN TAB PO SCH (07:59)
[2022-07-28] MEDS: DOCUSATE SODIUM 100 MG CAP PO SCH ×2 (08:00→20:27)
[2022-07-28] MEDS: oxyCODONE HCL IR 5 MG TAB (IMMEDIATE RELEASE) PO PRN ×2 (08:04→17:17)
[2022-07-28] MEDS ORDERED: [UNRECOGNIZED DRUG - OTHER] PO SCH (09:00)
[2022-07-28] MEDS ORDERED: ZINC SULFATE PO SCH (09:00)
--- NOTE | 2022-07-28 09:15 | Orthopedic Progress Note ---
Date of Service July 28, 2022 Assessment & Plan (1) Arthritis of knee, left: Plan: Postop day 1 status post left total knee arthroplasty. PT/OT protocols. Weightbearing as tolerated. Use of immobilizer for right leg weakness if needed. DVT prophylaxis-apixaban 5 mg p.o. twice daily, KEMAR Mejia. Pain management as written. Lab values pending. DC planning-patient is hoping for a rehab stay at [facility] swing bed unit. Case management to see about arranging. Admission and Anticipated Discharge Date Admission Date: July 27, 2022 Subjective Postop day 1 Patient currently sitting in her chair at the bedside. She just finished with occupational therapy. She is about to start with physical therapy. She has no overall complaints today. Pain is controlled. She did states she had a little bit of weakness in her right knee today when ambulating but otherwise feels well. She states that she is looking into going to a swing bed at [facility] for further rehab. Physical Exam Physical Exam: Dressings are clean, dry, and intact. Calves are soft nontender. Neurovascular intact. Toes are mobile. She has good dorsiflexion plantarflexion of her left foot. She has approximate 100 cc of drainage from her Hemovac from the previous shift. Results & Data Vital Signs (Past 12 Hours) Vital Signs Temp Pulse Resp BP BP Pulse Ox Pulse Ox 07/28/22 08:22 96 07/28/22 07:55 36.5 C 62 12 115/71 96 07/28/22 05:46 36.6 C 52 L 18 103/64 97 07/28/22 03:00 36.8 C 71 18 110/63 91 07/27/22 23:24 36.7 C 66 20 101/58 L 95 O2 Del Method O2 Flow Rate 07/28/22 08:22 07/28/22 07:55 Nasal Cannula 1 07/28/22 05:46 Nasal Cannula 07/28/22 03:00 Nasal Cannula 1 07/27/22 23:24 Room Air
[2022-07-28 09:33] LABS: Hematocrit (blood only) 35.1 % (37.0-47.0); Hemoglobin 11.3 g/dl (12.0-16.0); Mean Corpuscular Hemoglobin 30.9 pg (25.0-34.0); Mean Corpuscular Hgb Conc 32.2 g/dL (32.0-36.0); Mean Corpuscular Volume 95.9 fL (80.0-100.0); Mean Platelet Volume 10.2 fL (9.4-12.4); Platelet Count 297 K/uL (130-400); RDW Coefficient of Variation 13.4 % (11.5-14.5); RDW Standard Deviation 47.6 fL (36.4-46.3); Red Blood Count 3.66 M/uL (4.20-5.40); White Blood Count 18.02 K/ul (4.8-10.8)
[2022-07-28 10:00] LABS: BUN Creatinine Ratio 18.2 (10-20); Calcium 9.5 mg/dl (8.6-10.3); Creatinine Clr Calc Pharmacy 49.3 ml/min; Est GFR (African American) 40.9 ml/min; Est GFR (Non-African American) 35.3 ml/min
[2022-07-28] MEDS ORDERED: CARISOPRODOL 350 MG TABLET PO PRN (10:40)
[2022-07-28] MEDS: SENNA 8.6 MG TAB PO SCH (20:26)
[2022-07-28] MEDS: PROPRANOLOL HCL 80 MG TAB PO SCH (20:28)
[2022-07-29] MEDS: oxyCODONE HCL IR 5 MG TAB (IMMEDIATE RELEASE) PO PRN ×5 (03:42→23:06)
[2022-07-29] MEDS: ACETAMINOPHEN 500 MG TAB PO SCH ×3 (05:20→20:54)
[2022-07-29] MEDS: ASCORBIC ACID 500 MG TAB PO SCH (09:26)
[2022-07-29] MEDS: CHOLECALCIFEROL 5,000 UNITS 125 MCG TAB PO SCH (09:26)
[2022-07-29] MEDS: VITAMIN B COMPLEX TAB PO SCH (09:26)
[2022-07-29] MEDS: MULTIVITAMIN TAB PO SCH (09:26)
[2022-07-29] MEDS: GABAPENTIN 800 MG TAB PO SCH ×3 (09:27→20:55)
[2022-07-29] MEDS: APIXABAN 5 MG TABLET PO SCH ×2 (09:27→20:55)
[2022-07-29] MEDS: DOCUSATE SODIUM 100 MG CAP PO SCH ×2 (09:27→20:54)
[2022-07-29] MEDS: MAGNESIUM OXIDE 400 MG TAB PO SCH (09:27)
[2022-07-29] MEDS: ZINC SULFATE 220 MG CAPSULE PO SCH (09:28)
--- NOTE | 2022-07-29 09:41 | Orthopedic Progress Note ---
Date of Service July 29, 2022 Assessment & Plan (1) Status post left knee replacement: Plan: 62 yo female stable POD #1 s/p left TKA 1. Med management 2. DVT prophylaxis- Rangel, ESPERANZAs 3. PT/OT 4. D/C planning- Referral to [facility] rehab, auth pending, d/c when approved Admission and Anticipated Discharge Date Admission Date: July 27, 2022 Subjective Pt resting in chair, denies complaints, pain controlled Physical Exam Physical Exam: Dressing and drain intact, will be d/c'd by nurse. VALDEMAR in place, toes mobile, NVI Results & Data Vital Signs (Past 12 Hours) Vital Signs Temp Pulse Pulse Resp BP Pulse Ox O2 Del Method 07/29/22 07:40 36.4 C L 50 L 16 102/59 L 95 Room Air 07/29/22 03:40 36.5 C 54 L 18 118/70 95 Room Air 07/28/22 21:41 36.7 C 52 L 16 103/65 96 Room Air Laboratory Results 07/28/22 Range/Units 09:16 Sodium 138 (136-145) mmol/L Potassium 5.0 (3.5-5.1) mmol/L Chloride 105 (98-107) mmol/L Carbon Dioxide 24 (21-32) mmol/L Anion Gap 9 (3-11) BUN 28 H (6-23) mg/dl Creatinine 1.54 H (0.6-1.2) mg/dl Est Cr Clr Drug Dosing 49.3 ml/min Est GFR ( Amer) 40.9 ml/min Est GFR (Non-Af Amer) 35.3 ml/min BUN/Creatinine Ratio 18.2 (10-20) Glucose 244 H (70-99(Fasting)) mg/dl Calcium 9.5 (8.6-10.3) mg/dl
[2022-07-29] MEDS: PANTOprazole 40 MG TAB PO SCH (10:41)
[2022-07-29] MEDS: SENNA 8.6 MG TAB PO SCH (20:54)
[2022-07-29] MEDS ORDERED: PROPRANOLOL HCL LA 80 MG CAPCR PO SCH (21:00)
[2022-07-30] MEDS: ACETAMINOPHEN 500 MG TAB PO SCH ×2 (05:19→12:58)
[2022-07-30] MEDS: oxyCODONE HCL IR 5 MG TAB (IMMEDIATE RELEASE) PO PRN ×3 (05:54→15:27)
[2022-07-30] MEDS: APIXABAN 5 MG TABLET PO SCH (08:31)
[2022-07-30] MEDS: VITAMIN B COMPLEX TAB PO SCH (08:31)
[2022-07-30] MEDS: ZINC SULFATE 220 MG CAPSULE PO SCH (08:31)
[2022-07-30] MEDS: ASCORBIC ACID 500 MG TAB PO SCH (08:32)
[2022-07-30] MEDS: DOCUSATE SODIUM 100 MG CAP PO SCH (08:32)
[2022-07-30] MEDS: MULTIVITAMIN TAB PO SCH (08:32)
[2022-07-30] MEDS: CHOLECALCIFEROL 5,000 UNITS 125 MCG TAB PO SCH (08:32)
[2022-07-30] MEDS: MAGNESIUM OXIDE 400 MG TAB PO SCH (08:32)
[2022-07-30] MEDS: PANTOprazole 40 MG TAB PO SCH (08:33)
[2022-07-30] MEDS: GABAPENTIN 800 MG TAB PO SCH ×2 (08:33→12:59)
== END 2022-07-30 16:43 | disposition home health service (06) ==
LOC: ASU 05:12 → 3E 05:12